=== PATIENT | female | born 1945 | race African-American/Black ===

== ENCOUNTER 2016-10-20 10:56 | Emergency (ER) | payer MEDICARE ==
[~2016-10-20] VITALS: Ht 165.1 cm; Wt 83.9 kg
[~2016-10-20 10:56] MED LIST: RIVA1TAB
[2016-10-20 11:53] LABS: BASOPHILS # (AUTO) 0.1 /CMM (0.0-0.2); BASOPHILS % (AUTO) 1.2 % (0.0-2.0); DIFF TOTAL % 100 %; EOSINOPHILS # (AUTO) 0.2 /CMM (0.0-0.7); EOSINOPHILS % (AUTO) 2.7 % (0.0-6.0); HEMATOCRIT 32 % (33-45); HEMOGLOBIN 10.9 g/dL (11.5-14.8); LYMPHOCYTES # (AUTO) 1.5 /CMM (0.8-4.8); MEAN CORPUSCULAR HEMOGLOBIN 28 PG (26.0-33.0); MEAN CORPUSCULAR HGB CONC 34 g/dl (31.0-36.0); MEAN CORPUSCULAR VOLUME 83 fL (82-100); MONOCYTES # (AUTO) 0.4 /CMM (0.1-1.30); MONOCYTES % (AUTO) 7.8 % (2.0-12.0); NEUTROPHILS # (AUTO) 3.4 /CMM (1.8-8.9); NEUTROPHILS % (AUTO) 61.3 % (43.0-81.0); PLATELET COUNT (AUTO) 202 /CMM (150-450); RED BLOOD CELL COUNT(AUTO) 3.87 MIL/uL (4.0-5.2); WHITE BLOOD COUNT (AUTO) 5.6 K/uL (4.3-11.0)
[2016-10-20 11:56] LABS: CALCIUM, SERUM 8.5 mg/dL (8.5-10.1); CREATININE 0.7 mg/dL (0.6-1.3); POTASSIUM 3.4 mmol/L (3.5-5.1)
[2016-10-20 12:00] LABS: PROTHROMBIN TIME 10.5 SECS (9.5-12.7)
[2016-10-20 12:02] LABS: ALBUMIN 3.2 g/dL (3.4-5.0); BILIRUBIN,TOTAL 0.5 mg/dL (0.2-1.0); TOTAL PROTEIN, SERUM 6.9 g/dL (6.4-8.2)
[2016-10-20 13:34] VITALS: BP 152/82
== END 2016-10-20 13:40 | disposition short-term general hospital (02) ==
LOC: ER 11:06
DX: M79.89 Other specified soft tissue disorders (principal); E66.9 Obesity, unspecified; D64.9 Anemia, unspecified; G62.9 Polyneuropathy, unspecified; Z88.0 Allergy status to penicillin; Z88.1 Allergy status to other antibiotic agents; Z88.2 Allergy status to sulfonamides; Z88.6 Allergy status to analgesic agent; Z79.01 Long term (current) use of anticoagulants
CPT/HCPCS: 36415; 80053; 85025; 85730; 93970; 99285; A4606; Z7610

== ENCOUNTER 2016-10-22 15:46 | Emergency (ER) | payer MEDICARE ==
[~2016-10-22] VITALS: Ht 167.6 cm; Wt 86.2 kg
[2016-10-22 15:46] VITALS: BP 188/85
== END 2016-10-22 17:33 | disposition home or self-care (01) ==
LOC: ER 15:50
DX: R60.9 Edema, unspecified (principal); E66.9 Obesity, unspecified; M79.89 Other specified soft tissue disorders; Z79.01 Long term (current) use of anticoagulants; Z86.718 Personal history of other venous thrombosis and embolism; Z88.0 Allergy status to penicillin
CPT/HCPCS: 99283; A4606; Z7610

== ENCOUNTER 2016-12-20 08:13 | Inpatient (IN) | payer MEDICARE, OTHER ==
[~2016-12-20] VITALS: Ht 165.1 cm; Wt 74.8 kg
[2016-12-20 04:00] VITALS: BP 151/75
--- NOTE | 2016-12-20 08:18 | NUR ---
BIBRA FROM HOME DUE TO CHRST PALPITATIONA AND BUE NUMBNESS SINCE THIS AM. PATIENT IS AWAKE, ALERTM APPEARS IN NO APPARENT DISTRESS, RESPIRATION EVEN AND UNLABORED, SKIN IS WARM TO TOUCH AND NON DIAPHORETIC. GOWNED PT AND PLACED ON TELE MONITOR
[2016-12-20] MEDS ORDERED: ASPIRIN 325 MG TABLET PO ONE (08:30)
[2016-12-20] MEDS ORDERED: ASPIRIN 325 MG TABLET ONE (08:39)
--- NOTE | 2016-12-20 09:10 | NUR ---
DR MCGUIRE AT BEDSIDE FOR ULTRASOUND IV INSERTION.
--- NOTE | 2016-12-20 09:16 | NUR ---
PT REFUSES IV INSERTION, BUT IS WILLING TO HAVE BLOOD DRAWN. REFUSING LIDCAINE IV INSERTION. DR MCGUIRE AWARE
[2016-12-20 09:37] LABS: BASOPHILS % (AUTO) 0.6 % (0.0-2.0); EOSINOPHILS # (AUTO) 0.2 /CMM (0.0-0.7); EOSINOPHILS % (AUTO) 3.3 % (0.0-6.0); HEMATOCRIT 31 % (33-45); HEMOGLOBIN 10.6 g/dL (11.5-14.8); LYMPHOCYTES # (AUTO) 1.6 /CMM (0.8-4.8); LYMPHOCYTES % (AUTO) 31.3 % (20.0-44.0); MEAN CORPUSCULAR HEMOGLOBIN 29 PG (26.0-33.0); MEAN CORPUSCULAR HGB CONC 34 g/dl (31.0-36.0); MEAN CORPUSCULAR VOLUME 84 fL (82-100); MONOCYTES # (AUTO) 0.5 /CMM (0.1-1.30); NEUTROPHILS # (AUTO) 2.9 /CMM (1.8-8.9); NEUTROPHILS % (AUTO) 55.8 % (43.0-81.0); PLATELET COUNT (AUTO) 194 /CMM (150-450); RDW COEFFICIENT OF VARIATION 15.3 (11.5-15.0); RED BLOOD CELL COUNT(AUTO) 3.71 MIL/uL (4.0-5.2); WHITE BLOOD COUNT (AUTO) 5.2 K/uL (4.3-11.0)
[2016-12-20 09:47] LABS: CALCIUM, SERUM 8.3 mg/dL (8.5-10.1); CARBON DIOXIDE 27 mmol/L (21-32); CHLORIDE 109 mmol/L (98-107); CREATININE 0.7 mg/dL (0.6-1.3); GFR 101 mL/min (>60); GLUCOSE 102 mg/dL (74-106); POTASSIUM 3.8 mmol/L (3.5-5.1); SODIUM SERUM 142 mmol/L (136-145); UREA NITROGEN, BLOOD 14 mg/dL (7-18)
[2016-12-20 09:55] LABS: TROPONIN I < 0.017 ng/mL (0.00-0.056)
[2016-12-20 09:59] LABS: B-TYPE NATRIURETIC PEPTIDE 359 PG/ML (0-125)
[2016-12-20 10:05] LABS: D-DIMER 2.42 mg/L(FEU (0.17-0.50); INR 0.99 (0.87-1.13); PROTHROMBIN TIME 10.6 SECS (9.5-12.7)
[2016-12-20] MEDS ORDERED: LIDOCAINE 0.5%-EPI 1:200,000 50 ML VIAL ONE (11:36)
--- NOTE | 2016-12-20 11:50 | NUR ---
MD AT BEDSIDE FOR ULTRASOUND GUIDED IV ACCESS. PER PT OKAY WITH PROCEDURE.
--- NOTE | 2016-12-20 12:10 | NUR ---
PER PT DOES NOT WANT IV OR PICC LINE AT THIS TIME.
--- NOTE | 2016-12-20 12:23 | NUR ---
PAGED BUDDY MCDONALD
--- NOTE | 2016-12-20 12:45 | NUR ---
SPOKE TO PATIENT, PATIENT AGREED FOR INSERTION OF PICCLINE. MD IS AWARE. SOLE TRIMMER MADE AWARE. PAGING PICC LINE TEAM
--- NOTE | 2016-12-20 12:46 | NUR ---
CALLED NURSING PACK MASTER FOR PICCLINE INSERTION
--- NOTE | 2016-12-20 13:40 | NUR ---
METALLURGICAL INSPECTOR NOTES RECEIVED REPORT FROM RICHELLE RUTH
--- NOTE | 2016-12-20 13:47 | NUR ---
PER DR GOODWIN PT TO HAVE PICC LINE IN THEN CTA. PER PICC LINE NURSE WILL COME AT 1500.
--- NOTE | 2016-12-20 13:48 | NUR ---
ELOISE BUENO NURSE ETA 1500
--- NOTE | 2016-12-20 14:57 | NUR ---
WIRE STRIPPER NOTES PER X RAY CANCEL ORDER FROM DR GOODWIN FOR CT CHEST THEY WILL DO THIS IN THE ER
[2016-12-20] MEDS ORDERED: MORPHINE SULFATE INJ 2 MG/ML DISP.SYRIN IV PRN (15:00)
[2016-12-20] MEDS ORDERED: ZOLPIDEM TARTRATE 5 MG TABLET PO PRN (15:00)
[2016-12-20] MEDS ORDERED: ACETAMINOPHEN 325 MG TABLET PO PRN (15:00)
[2016-12-20] MEDS ORDERED: MAG HYDROX/AL HYDROX/SIMETH 30 ML UDC PO PRN (15:00)
[2016-12-20] MEDS ORDERED: Z GUARD REMEDY 2 OZ OINT TP PRN (15:00)
[2016-12-20] MEDS ORDERED: MAGNESIUM HYDROXIDE 30 ML UDC PO PRN (15:00)
[2016-12-20] MEDS ORDERED: ONDANSETRON HCL/PF 4 MG/2 ML VIAL IVP PRN (15:00)
--- NOTE | 2016-12-20 15:42 | NUR ---
ELOISE PICC LINE RN AT BEDSIDE FOR INSERTION.
--- NOTE | 2016-12-20 15:43 | NUR ---
MIDLINE WILL BE PLACED PER MD
[2016-12-20 16:00] VITALS: BP 174/87
[2016-12-20 16:01] LABS: IRON, SERUM 36 ug/dl (50-175); TOTAL IRON BINDING CAPACITY 343 ug/dl (250-450)
[2016-12-20] MEDS ORDERED: IOHEXOL-350 100 ML VIAL IV ONE (16:14)
[2016-12-20] MEDS ORDERED: IV NS 0.9% 250 ML IV ONE (16:14)
--- NOTE | 2016-12-20 16:30 | NUR ---
RN Notes Received from ER a 71 year old female with cc of palpitation under the service of Dr Gilmore. Patient is awake,alert and oriented. Not in any form of distress. On RA saturating at 98% with no SOB. With IV access on left upper arm patent and intact. Placed comfortably on bed. Routine admission care done. Vs taken as BP 174/87 IL 76 RR 18 T 99F. Oriented to the room and use of call light. No complain at this time. Call light placed within easy reach. Dr Gilmore to place admitting orders.
--- NOTE | 2016-12-20 17:30 | NUR ---
RN Notes Patient refused account of belongings.
--- NOTE | 2016-12-20 19:05 | NUR ---
RN NOTE RECEIVED REPORT. PT AAOX4, NO C/O OF ANY DISTRESS. DENIOES SOB/CP. SKIN WARM TO TOUCH, NON-DIAPHORETIC. TELE SHOWS SR. IV INTACT AND PATENT. CALL LIGHT IN REACH, WILL CONT TO MONITOR. REFUSING BELONGING CHECK
[2016-12-20] MEDS ORDERED: IV SET PRIMARY PUMP SET 1 EA INFUS.SET MC ONE (20:40)
[2016-12-20] MEDS: IV D5/0.45 NACL 1,000 ML IV PRN (20:49)
[2016-12-20 21:06] VITALS: BP 123/53
[2016-12-21] VITALS: BP 150/76
[2016-12-21 01:03] LABS: APPEARANCE,URINE CLEAR (CLEAR); BILIRUBIN,URINE NEGATIVE (NEGATIVE); BLOOD, URINE NEGATIVE Ery/uL (NEGATIVE); COLOR,URINE YELLOW (YELLOW); KETONES,URINE NEGATIVE (NEGATIVE); LEUKOCYTE ESTERASE ,URINE NEGATIVE (NEGATIVE); NITRITE, URINE NEGATIVE (NEGATIVE); PH,URINE 6.5 (5.0-8.0); PROTEIN,URINE NEGATIVE (NEGATIVE); UGLUCOSE NEGATIVE (NEGATIVE); UROBILINOGEN,URINE 0.2 EU/dL (0.2)
--- NOTE | 2016-12-21 02:15 | NUR ---
RN NOTE NO DISTRESS NOTED AT THIS TIME. PT RESTING COMFORTABLY. WILL CONT TO MONITOR.
--- NOTE | 2016-12-21 07:03 | NUR ---
RN NOTE NO SIGNIFICANT CHANGES OVERNIGHT. PT AAOX4, WITH PERIODS OF FORGETFULNESS AT TIMES. DENIES SOB/CP, BREATHING NON-LABORED AND EVEN - NON DIAPHORETIC. NO DISTRESS NOTED. TELE SHOWS SR. IV INTACT AND PATENT, TOLERATING FLUIDS WELL. WILL F/U WITH DAY SHIFT FOR TONYA.
[2016-12-21 07:04] VITALS: BP 145/68
--- NOTE | 2016-12-21 07:20 | NUR ---
FARM SUPERVISOR OPENING NOTES RECEIVED PT. FROM NIGHTSHIFT NURSE IN STABLE CONDITION. A/O X4. ON TELE MONITOR WITH SR. PT. HAS A LEFT UPPER ARM MIDLINE. MIDLINE PATENT AND INTACT R=INFUSING D5 1/2 NS @ 75ML.HR. PT. TOLERATING INFUSION WELL. NO REDNESS OR INFILTRATION NOTED. PT. DENIES ANY CHEST PAIN OR PALPITATIONS AT THIS TIME. COMPLAINS OF ONGOING "TINGLING" SENSATION IN BOTH LOWER AND UPPER EXTREMITIES. WILL CONTINUE TO MONITOR.
[2016-12-21 08:34] LABS: BASOPHILS % (AUTO) 0.6 % (0.0-2.0); EOSINOPHILS # (AUTO) 0.1 /CMM (0.0-0.7); EOSINOPHILS % (AUTO) 2.1 % (0.0-6.0); HEMATOCRIT 35 % (33-45); HEMOGLOBIN 11.3 g/dL (11.5-14.8); LYMPHOCYTES # (AUTO) 1.5 /CMM (0.8-4.8); LYMPHOCYTES % (AUTO) 32.9 % (20.0-44.0); MEAN CORPUSCULAR HEMOGLOBIN 28 PG (26.0-33.0); MEAN CORPUSCULAR HGB CONC 33 g/dl (31.0-36.0); MEAN CORPUSCULAR VOLUME 85 fL (82-100); MONOCYTES # (AUTO) 0.4 /CMM (0.1-1.30); MONOCYTES % (AUTO) 8.7 % (2.0-12.0); NEUTROPHILS # (AUTO) 2.5 /CMM (1.8-8.9); NEUTROPHILS % (AUTO) 55.7 % (43.0-81.0); PLATELET COUNT (AUTO) 216 /CMM (150-450); RDW COEFFICIENT OF VARIATION 16.3 (11.5-15.0); RED BLOOD CELL COUNT(AUTO) 4.08 MIL/uL (4.0-5.2); WHITE BLOOD COUNT (AUTO) 4.6 K/uL (4.3-11.0)
[2016-12-21 08:48] LABS: ALBUMIN 2.9 g/dL (3.4-5.0); BILIRUBIN,TOTAL 0.3 mg/dL (0.2-1.0); CALCIUM, SERUM 8.3 mg/dL (8.5-10.1); CREATININE 0.8 mg/dL (0.6-1.3); MAGNESIUM 1.8 mg/dL (1.8-2.4); PHOSPHORUS 3.5 mg/dL (2.5-4.9); POTASSIUM 3.9 mmol/L (3.5-5.1); TOTAL PROTEIN, SERUM 6.6 g/dL (6.4-8.2)
[2016-12-21 08:50] LABS: INR 0.99 (0.87-1.13); PROTHROMBIN TIME 10.6 SECS (9.5-12.7)
[2016-12-21 08:54] LABS: THYROID STIMULATING HORMONE 0.645 uIU/mL (0.358-3.74)
[2016-12-21 09:00] VITALS: BP 145/68
[2016-12-21] MEDS: PANTOPRAZOLE 40 MG TABLET.DR PO SCH (09:02)
[2016-12-21] MEDS: CARVEDILOL 6.25 MG TABLET PO SCH ×3 (11:23→21:00)
[2016-12-21 12:00] VITALS: BP 150/84
--- NOTE | 2016-12-21 13:32 | NUR ---
PATIENT REFUSING CT UNTIL 1800. DIRECTOR E LEARNING AWARE
[2016-12-21 16:00] VITALS: BP 134/75
[2016-12-21] MEDS: RIVAROXABAN 10 MG TABLET PO SCH (18:08)
--- NOTE | 2016-12-21 18:14 | NUR ---
PT WANTS TO WAIT UNTIL AFTER DINNER BEFORE CT SCAN, RN IS AWARE.
--- NOTE | 2016-12-21 18:55 | NUR ---
MENAGERIE CARETAKER CLOSING NOTES PT IN STABLE CONDITION. A/O X4. DENIES ANY CHEST PAIN OR PALPITATIONS. NO ACUTE CHANGES IN CONDITION THROUGHOUT SHIFT. ALL PT. NEEDS MET AND ORDERS CARRIED OUT ACCORDINGLY. ALL SAFETY MEASURES IN PLACE. WILL ENDORSE TO NIGHTSHIFT NURSE FOR TONYA
--- NOTE | 2016-12-21 19:05 | NUR ---
RN NOTE RECEIVED REPORT. NO DISTRESS NOTED AT THIS TIME, PT APPEARS AGITATED. NO C/O OF CP/SOB. BREATHING NON-LABORED AND EVEN. TELE SHOWS SR. IV INTCT AND P[ATENT, TOLERATIG FLUIDS WELL. CALL LIGHT IN REACH WILL CONT TO MONITOR.
[2016-12-21 20:00] VITALS: BP 160/86
[2016-12-21] MEDS: HYDROCODONE/APAP 5/325MG 1 EACH TABLET PO PRN (20:50)
--- NOTE | 2016-12-21 21:10 | NUR ---
RN NOTE PT REFUSING COREG BP MED DESPITE ENCOURAGEMENT AND TEACHING X3. PT STATES THAT HER BODY IS SENSITIVE AND SHE NEVER TOOK THAT MEDICATION BEFORE.
[2016-12-22] VITALS: BP 131/66
[2016-12-22] MEDS: IV D5/0.45 NACL 1,000 ML IV PRN ×2 (01:56→21:53)
[2016-12-22 04:00] VITALS: BP 135/70
--- NOTE | 2016-12-22 06:27 | NUR ---
RN NOTE NO SIGNIFICANT CHANGES THIS SHIFT. PT SLEPT WELL. NO S/S OF ANY DISTRESS AT THIS TIME. DENIES CP/SOB. TELE SHOWS SR. IV INTACT AND PATENT,TOLERATING FLUIDS WELL. ALL NEEDS ATTENDED TO, CALL LIGHT IN REACH. FOR LEXISCAN AT 0800.
[2016-12-22 06:38] LABS: BASOPHILS % (AUTO) 0.6 % (0.0-2.0); EOSINOPHILS # (AUTO) 0.2 /CMM (0.0-0.7); EOSINOPHILS % (AUTO) 3.1 % (0.0-6.0); HEMATOCRIT 34 % (33-45); HEMOGLOBIN 11.2 g/dL (11.5-14.8); LYMPHOCYTES # (AUTO) 1.8 /CMM (0.8-4.8); LYMPHOCYTES % (AUTO) 33.5 % (20.0-44.0); MEAN CORPUSCULAR HEMOGLOBIN 28 PG (26.0-33.0); MEAN CORPUSCULAR HGB CONC 33 g/dl (31.0-36.0); MEAN CORPUSCULAR VOLUME 85 fL (82-100); MONOCYTES # (AUTO) 0.5 /CMM (0.1-1.30); MONOCYTES % (AUTO) 10.4 % (2.0-12.0); NEUTROPHILS # (AUTO) 2.7 /CMM (1.8-8.9); NEUTROPHILS % (AUTO) 52.4 % (43.0-81.0); PLATELET COUNT (AUTO) 216 /CMM (150-450); RED BLOOD CELL COUNT(AUTO) 4.01 MIL/uL (4.0-5.2); WHITE BLOOD COUNT (AUTO) 5.2 K/uL (4.3-11.0)
[2016-12-22 06:41] LABS: CALCIUM, SERUM 8.4 mg/dL (8.5-10.1); CREATININE 0.7 mg/dL (0.6-1.3); MAGNESIUM 1.8 mg/dL (1.8-2.4); PHOSPHORUS 3.7 mg/dL (2.5-4.9)
[2016-12-22 07:16] VITALS: BP 144/72
--- NOTE | 2016-12-22 07:20 | NUR ---
PAVILION CUTTER OPENING NOTES RECEIVED PT. FROM NIGHTSHIFT NURSE IN STABLE CONDITION. A/O X4. ON TELE MONITOR WITH SR. PT. HAS A LEFT UPPER ARM MIDLINE. MIDLINE PATENT AND INTACT INFUSING D5 1/2 NS @ 75ML.HR. PT. TOLERATING INFUSION WELL. NO REDNESS OR INFILTRATION NOTED. PT. DENIES ANY CHEST PAIN OR PALPITATIONS AT THIS TIME. BED IN LOW LOCKED POSITION, SIDE RAILS UP X2, CALL LIGHT WITHIN REACH. WILL CONTINUE TO MONITOR.
[2016-12-22 08:00] VITALS: BP 144/79
[2016-12-22] MEDS ORDERED: REGADENOSON 0.4 MG/5 ML DISP.SYRIN IVP ONE (08:00)
[2016-12-22 08:28] LABS: HOMOCYSTEINE, PLASMA 12.5 umol/L (0.0-15.0)
[2016-12-22] MEDS: CARVEDILOL 6.25 MG TABLET PO SCH ×2 (09:16→21:48)
[2016-12-22] MEDS: PANTOPRAZOLE 40 MG TABLET.DR PO SCH (09:16)
[2016-12-22] MEDS: MUPIROCIN OINT 2% 22 GM TUBE SCH ×2 (09:16→21:50)
[2016-12-22 10:34] LABS: CARCINOEMBRYONIC AG (CEA) 2.6 ng/mL (0.0-4.7)
[2016-12-22] MEDS: HYDROCODONE/APAP 5/325MG 1 EACH TABLET PO PRN (11:22)
--- NOTE | 2016-12-22 14:49 | NUR ---
DIETARY SUPERVISOR NOTES PT.'S IV IS NO LONGER PATENT. INFUSION STOPPED.MIDLINE NURSE WAS NOTIFIED AND SAID HE WILL COME ASSESS AND INTERVENE. WILL CONTINUE TO MONITOR AND AWAIT MIDLINE NURSE
--- NOTE | 2016-12-22 16:59 | NUR ---
SALT MANAGER NOTES JOB THE MIDLINE NURSE SUCCESSFULLY FIXED PT.'S MIDLINE. IV IS NOW PATENT AND INTACT. GOOD BLOOD RETURN PRESENT AND FLUSHES WELL
[2016-12-22] MEDS: GABAPENTIN 100 MG CAPSULE PO SCH (17:25)
[2016-12-22] MEDS: RIVAROXABAN 10 MG TABLET PO SCH (17:29)
--- NOTE | 2016-12-22 18:43 | NUR ---
CHARACTER IMPERSONATOR CLOSING NOTES PT IN STABLE CONDITION. A/O X4. DENIES ANY CHEST PAIN OR PALPITATIONS. MIDLINE INTACT AND PATENT. NO REDNESS OR INFILTRATION NOTED. NO ACUTE CHANGES IN CONDITION THROUGHOUT SHIFT. ALL PT. NEEDS MET AND ORDERS CARRIED OUT ACCORDINGLY. ALL SAFETY MEASURES IN PLACE. WILL ENDORSE TO NIGHTSHIFT NURSE FOR TONYA
--- NOTE | 2016-12-22 19:40 | NUR ---
LEASING COORDINATOR NOTE: PATIENT RESTING IN BED, NO ACUTE DISTRESS NOTED. BREATHING EVEN AND UNLABORED, NO SOB NOTED. TELE READING SR 74. MIDLINE TO LEFT UPPER ARM IN PLACE, INFUSING D5 1/2NS AT 75ML/HR. BED LOCKED AND IN LOWEST POSITION, CALL LIGHT IN REACH. WILL CONTINUE TO MONITOR.
[2016-12-22 20:00] VITALS: BP 159/99
[2016-12-23] VITALS: BP 160/79
[2016-12-23] MEDS: HYDROCODONE/APAP 5/325MG 1 EACH TABLET PO PRN ×2 (02:19→14:14)
--- NOTE | 2016-12-23 02:30 | NUR ---
ICE GUARD INSPECTOR NOTE: PATIENT COMPLAINS OF CHEST PAIN 02/19, NORCO 5/325MG ORAL GIVEN PER MD ORDER. WILL CONTINUE TO MONITOR.
[2016-12-23 04:00] VITALS: BP 110/62
--- NOTE | 2016-12-23 06:10 | NUR ---
TOUR COUNSELOR NOTE: PATIENT RESTING IN BED, NO ACUTE DISTRESS NOTED. BREATHING EVEN AND UNLABORED, NO SOB NOTED. TELE READING SR 70. MIDLINE TO LEFT UPPER ARM IN PLACE, INFUSING D5 1/2NS AT 75ML/HR. BED LOCKED AND IN LOWEST POSITION, CALL LIGHT IN REACH. WILL ENDORSE TO DAY NURSE TO CONTINUE WITH PLAN OF CARE.
[2016-12-23 08:00] VITALS: BP 142/88
[2016-12-23 08:30] LABS: BASOPHILS % (AUTO) 0.5 % (0.0-2.0); EOSINOPHILS # (AUTO) 0.1 /CMM (0.0-0.7); EOSINOPHILS % (AUTO) 2.8 % (0.0-6.0); HEMATOCRIT 36 % (33-45); HEMOGLOBIN 11.5 g/dL (11.5-14.8); LYMPHOCYTES # (AUTO) 1.9 /CMM (0.8-4.8); LYMPHOCYTES % (AUTO) 40.7 % (20.0-44.0); MEAN CORPUSCULAR HEMOGLOBIN 28 PG (26.0-33.0); MEAN CORPUSCULAR HGB CONC 32 g/dl (31.0-36.0); MEAN CORPUSCULAR VOLUME 86 fL (82-100); MONOCYTES # (AUTO) 0.5 /CMM (0.1-1.30); MONOCYTES % (AUTO) 10.2 % (2.0-12.0); NEUTROPHILS # (AUTO) 2.1 /CMM (1.8-8.9); NEUTROPHILS % (AUTO) 45.8 % (43.0-81.0); PLATELET COUNT (AUTO) 227 /CMM (150-450); RDW COEFFICIENT OF VARIATION 15.8 (11.5-15.0); RED BLOOD CELL COUNT(AUTO) 4.18 MIL/uL (4.0-5.2); WHITE BLOOD COUNT (AUTO) 4.6 K/uL (4.3-11.0)
[2016-12-23 08:36] LABS: CALCIUM, SERUM 8.5 mg/dL (8.5-10.1); CREATININE 0.7 mg/dL (0.6-1.3); MAGNESIUM 1.8 mg/dL (1.8-2.4); PHOSPHORUS 3.9 mg/dL (2.5-4.9); POTASSIUM 3.9 mmol/L (3.5-5.1)
[2016-12-23] MEDS: GABAPENTIN 100 MG CAPSULE PO SCH ×3 (08:54→17:14)
[2016-12-23] MEDS: PANTOPRAZOLE 40 MG TABLET.DR PO SCH (08:54)
[2016-12-23] MEDS: CARVEDILOL 6.25 MG TABLET PO SCH ×2 (08:55→22:29)
[2016-12-23] MEDS: MUPIROCIN OINT 2% 22 GM TUBE SCH ×2 (09:03→22:00)
--- NOTE | 2016-12-23 11:00 | NUR ---
RN MS NOTES PT IN BED, RESTING, NO COMPLAINT OF PAIN OR ANY DISCOMFORT, BREATHING PATTERN NORMAL, CALL LIGHT WITHIN REACH, IV FLUIDS INFUSING WELL, ASSISTED IN TRANSFERING TO BEDSIDE COMMODE, ASSISTED IN TURNING AND REPOSITIONING.
[2016-12-23 12:00] VITALS: BP 138/75
[2016-12-23] MEDS: IV D5/0.45 NACL 1,000 ML IV PRN (13:05)
--- NOTE | 2016-12-23 13:19 | NUR ---
RN NOTES RECEIVED PATIENT IN BED A/O X 3, AWAKE AND VERBALLY RESPONSIVE. NO SOB NOTED, RESPIRATIONS EVEN AND UNLABORED. PATIENT DENIES PAIN. IV LINE PATENT NO S/S OF INFILTRATION NOTED. ALL NEEDS MET KEPT CLEAN AND DRY. Addendum: 12/23/16 at 1321 by JEFF DOUGLASS RN 0730 NOTES
[2016-12-23 14:19] LABS: *ANTITHROMBIN III AG 91 % (72-124); *DILUTE PROTHROMBIN TIME (dPT) 42.7 sec (0.0-55.0); *PTT-LA 40.6 sec (0.0-43.6); *dRVVT 38.8 sec (0.0-47.0); ANTITHROMBIN III ACTIVITY 93 % (75-135); PROTEIN C ACTIVITY 66 % (73-180); PROTEIN S ACTIVITY 59 % (63-140)
[2016-12-23 15:09] LABS: *INTERPRETATION Comment: (.)
[2016-12-23 16:00] VITALS: BP 149/78
[2016-12-23] MEDS: RIVAROXABAN 10 MG TABLET PO SCH (17:14)
--- NOTE | 2016-12-23 19:00 | NUR ---
RN MS NOTES PT IN BED, AWAKE, ALERT AND ORIENTED, NO COMPLAINT OF PAIN, RESPIRATIONS NORMAL, CALL LIGHT WITHIN REACH, PLAN OF CARE DISCUSSED WITH PT, VERBALIZED UNDERSTANDING, PM MEDS GIVEN, ATE DINNER WITH GOOD APPETITE, PM CARE RENDERED, ALL NEEDS ATTENDED.
--- NOTE | 2016-12-23 19:30 | NUR ---
MS/INTERVIEWING CLERK; RECEIVED PT IN BED AWAKE, ALERT , ORIENTED AND VERBALLY RESPONSIVE. DENIES PAIN. BREATHING NON LABORED. MIDLINE ON LANE INTACT WITH IVF OF D5 1/2 NS AT 75 ML / HOUR ON PROGRESS. BED ON LOWER POSITION AND LOCKED FOR SAFETY. UPPER PART OF BED SIDE RAILS ARE UP FOR SAFETY. CONTINUE TO MONITOR. CALL LIGHT WITHIN REACH.
[2016-12-23 20:00] VITALS: BP 138/90
[2016-12-23] MEDS ORDERED: MUPIROCIN OINT 2% 22 GM TUBE ONE (22:45)
[2016-12-24] MEDS: IV D5/0.45 NACL 1,000 ML IV PRN ×2 (04:41→17:29)
--- NOTE | 2016-12-24 07:00 | NUR ---
MS/INSTRUCTIONAL DESIGN SPECIALIST DENIES PAIN. SLEPT FAIRLY. BREATHING NON LABORED. IVF ON PROGRESS. WILL ENDORSE TO THE DAY SHIFT NURSE.
--- NOTE | 2016-12-24 07:30 | NUR ---
RN MS NOTES PT IN BED, AWAKE, ALERT AND ORIENTED, NO COMPLAINT OF PAIN OR ANY DISCOMFORT, RESPIRATIONS NORMAL, IV FLUIDS INFUSING WELL, STATED THAT SHE SLEPT WELL DURING THE NIGHT, CALL LIGHT WITHIN REACH, NEEDS ATTENDED.
[2016-12-24 08:00] VITALS: BP 162/99
[2016-12-24] MEDS: GABAPENTIN 100 MG CAPSULE PO SCH ×3 (08:48→17:00)
[2016-12-24] MEDS: PANTOPRAZOLE 40 MG TABLET.DR PO SCH (08:48)
[2016-12-24] MEDS: CARVEDILOL 6.25 MG TABLET PO SCH ×2 (08:48→22:00)
[2016-12-24] MEDS: MUPIROCIN OINT 2% 22 GM TUBE SCH ×2 (08:49→22:03)
--- NOTE | 2016-12-24 12:30 | NUR ---
RN MS NOTES PT IN BED, AWAKE, ALERT AND ORIENTED, NO COMPLAINT OF PAIN OR ANY DISCOMFORT, TOLERATING ROOM AIR WELL, IV FLUIDS INFUSING WELL, SEEN BY DR. GOODWIN, PLAN OF CARE DISCUSSED WITH PT, VERBALIZED UNDERSTANDING, CALL LIGHT WITHIN REACH, ASSISTED WITH MEALS.
[2016-12-24] MEDS: RIVAROXABAN 10 MG TABLET PO SCH (17:43)
--- NOTE | 2016-12-24 18:02 | NUR ---
RN MS NOTES PT IN BED, AWAKE, WATCHING TV, NO COMPLAINT OF PAIN OR ANY DISCOMFORT, ASSISTED WITH SETTING UP DINNER TRAY, NOTED WITH GOOD APPETITE, IV FLUIDS INFUSING WELL, PM MEDS GIVEN, REFUSED NEURONTIN, STATED THAT MED GIVES HER HEADACHE AT NIGHT, PT EDUCATION GIVEN REGARDING RISKS AND BENEFITS OF NEURONTIN WELL ITS POSSIBLE SIDE EFFECTS, VERBALIZED UNDERSTANDING, STILL REFULSED MED, CALL LIGHT WITHIN REACH, ASSISTED TO BEDSIDE COMMODE NEEDED.
[2016-12-24 19:00] VITALS: BP 134/76
[2016-12-24 20:00] VITALS: BP 134/76
--- NOTE | 2016-12-24 21:50 | NUR ---
MS/RN NOTES RECEIVED REPORT FROM LA NENA HOLLAND DUE TO PT REQUESTING A FEMALE NURSE. PT AWAKE, A/OX3, RESTING COMFORTABLY IN BED. ON ROOM AIR, NO S/S OF SOB OR DISTRESS NOTED. DENIES PAIN AT THIS TIME. LANE MIDLINE RUNNING D5 1/2 NS AT 75ML/HR. BED IN LOW/LOCKED POSITION WITH CALL LIGHT IN REACH. BED RAILS UPX2. WILL CONTINUE TO MONITOR
--- NOTE | 2016-12-25 03:35 | NUR ---
MS/RN NOTES PT ASLEEP, BREATHING EVEN AND UNLABORED. NO S/S OF DISTRESS NOTED. WILL CONTINUE TO MONITOR
--- NOTE | 2016-12-25 06:57 | NUR ---
MS/RN CLOSING NOTES PT ASLEEP, EASILY AROUSABLE TO NAME. ON ROOM AIR, DENIES SOB OR CHEST PAIN. NO S/S OF DYSPNEA, BREATHING IS EVEN AND UNLABORED. MIDLINE TO LANE PATENT AND INTACT RUNNING IVF ORDERED. MADE PT COMFORTABLE THROUGHOUT SHIFT. SLEPT WELL THROUGHOUT THE NIGHT. ALL NEEDS MET AND ATTENDED TO. BED IN LOW/LOCKED POSITION WITH CALL LIGHT IN REACH. ENCOURAGE PT TO CALL FOR ASSISTANCE. BED RAILS UP. WILL ENDORSE TO AM SHIFT TONYA.
--- NOTE | 2016-12-25 07:16 | NUR ---
MS/RN OPENING NOTE PT. IS LYING IN BED A&OX4. NO S/S OF DISTRESS, NO SOB, AND BREATHING ON ROOM AIR. PT. HAS IV FLUIDS RUNNING AT 75 ML/HR. BED IS IN LOW POSITION, 2 SIDE RAILS UP, CALL LIGHT IS WITHIN REACH, AND ALL NEEDS ATTENDED TO. REPORT GIVEN BY DAY SHIFT NURSE.
[2016-12-25 07:34] LABS: BASOPHILS % (AUTO) 0.6 % (0.0-2.0); EOSINOPHILS # (AUTO) 0.1 /CMM (0.0-0.7); EOSINOPHILS % (AUTO) 2.6 % (0.0-6.0); HEMATOCRIT 37 % (33-45); LYMPHOCYTES # (AUTO) 1.8 /CMM (0.8-4.8); LYMPHOCYTES % (AUTO) 35.2 % (20.0-44.0); MEAN CORPUSCULAR HEMOGLOBIN 28 PG (26.0-33.0); MEAN CORPUSCULAR HGB CONC 33 g/dl (31.0-36.0); MEAN CORPUSCULAR VOLUME 85 fL (82-100); MONOCYTES # (AUTO) 0.5 /CMM (0.1-1.30); MONOCYTES % (AUTO) 10.1 % (2.0-12.0); NEUTROPHILS # (AUTO) 2.6 /CMM (1.8-8.9); NEUTROPHILS % (AUTO) 51.5 % (43.0-81.0); PLATELET COUNT (AUTO) 277 /CMM (150-450); RED BLOOD CELL COUNT(AUTO) 4.32 MIL/uL (4.0-5.2); WHITE BLOOD COUNT (AUTO) 5.1 K/uL (4.3-11.0)
[2016-12-25 07:54] LABS: CALCIUM, SERUM 8.7 mg/dL (8.5-10.1); CREATININE 0.7 mg/dL (0.6-1.3); MAGNESIUM 1.8 mg/dL (1.8-2.4); PHOSPHORUS 3.8 mg/dL (2.5-4.9); POTASSIUM 4.1 mmol/L (3.5-5.1)
[2016-12-25 08:00] VITALS: BP 135/85
[2016-12-25] MEDS: MUPIROCIN OINT 2% 22 GM TUBE SCH ×3 (09:00→21:00)
[2016-12-25] MEDS: GABAPENTIN 100 MG CAPSULE PO SCH ×2 (09:00→17:00)
[2016-12-25] MEDS ORDERED: RIVA10TA PO (09:13)
[2016-12-25] MEDS ORDERED: CARV6.252 PO (09:13)
[2016-12-25] MEDS: PANTOPRAZOLE 40 MG TABLET.DR PO SCH (09:26)
[2016-12-25] MEDS: CARVEDILOL 6.25 MG TABLET PO SCH ×2 (09:28→21:00)
[2016-12-25] MEDS ORDERED: IV SET PRIMARY 1 EA INFUS.SET MC ONE (09:33)
[2016-12-25] MEDS: IV D5/0.45 NACL 1,000 ML IV PRN (09:33)
[2016-12-25 10:22] LABS: *CARD ANTI-CARDIOLIPIN AB IgA <9 APL U/mL (0-11); *CARD ANTI-CARDIOLIPIN AB IgG <9 GPL U/mL (0-14); *CARD ANTI-CARDIOLIPIN AB IgM <9 MPL U/mL (0-12)
[2016-12-25 16:00] VITALS: BP 137/73
[2016-12-25] MEDS: RIVAROXABAN 10 MG TABLET PO SCH (17:45)
--- NOTE | 2016-12-25 19:21 | NUR ---
MS/RN OPENING NOTES PATIENT IN BED, ALERT , ORIENTED X3. FAMILY MEMBER AT BED SIDE. CALL LIGHTS WITHIN REACH. WILL CONTINUE TO PROVIDE CARE. AND ATTEND TO NEEDS. PER FAMILY AND PATIENT WILL WANT TO KNOW D/C INSTRUCTIONS.
--- NOTE | 2016-12-25 19:30 | NUR ---
MS/RN PT. IS LYING IN BED A&OX4. NO SOB. PT. IS GUARDING HER RIGHT KNEE AND C/O KNEE PAIN. PT. WAS OFFERED PAIN MEDICATION. PT. BED IS IN LOW POSITION, 2 SIDE RAILS UP, CALL LIGHT WITHIN REACH, AND ALL NEEDS ATTENDED TO. WILL ENDORSE REPORT TO POLICE RADIO DISPATCHER NURSE.
[2016-12-25] MEDS: HYDROCODONE/APAP 5/325MG 1 EACH TABLET PO PRN (19:43)
--- NOTE | 2016-12-25 19:44 | NUR ---
MS/RN OPENING NOTES PATIENT IN BED, AWAKE, ALERTX3. ABLE TO VERBALIZE NEEDS. VERBALIZE SEVERE PAIN IN LEGS. ATTENDED TO PATIENTS CONCERN GAVE NORCO PO 5/325MG TAB. REQUEST TO HAVE B/P CHECK LATER ON PER PATIENT. PROVIDE FLUIDS. CALL LIGHTS WITHIN REACH. RECEIVED ENDORSEMENT FROM AM RN. PLAN TO BE DC TO SNF STILL PENDING FOR TONIGHT AWAITING FOR RETURN CALL.WILL CONTINUE MONITORING.
[2016-12-25 20:00] VITALS: BP 140/76
--- NOTE | 2016-12-25 20:30 | NUR ---
RN OPEN NOTES RECEIVED PATIENT AWAKE SITTING ON EDGE OF BED. A/O X3. NO SIGNS OF DISTRESS OF DISCOMFORT. BREATHING EVEN AND UNLABORED. HAS LANE MIDLINE, PATENT AND INTACT, NO SIGNS OF REDNESS OR INFILTRATION. DENIES ANY PAIN AT THIS TIME. BED IN LOW LOCKED POSITION WITH SIDE RAILS X2. CALL LIGHT WITHIN REACH. WILL CONTINUE TO MONITOR.
--- NOTE | 2016-12-25 20:54 | NUR ---
ms/rn notes REPORT GIVEN TO FLORY BLANC FOR CONTINUITY OF CARE.
[2016-12-25 21:00] VITALS: BP 140/76
--- NOTE | 2016-12-25 22:00 | NUR ---
RN NOTES PATIENT REFUSED COREG AND BACTROBAN X3. STATES SHE WAS ALREADY BEEN GIVEN HER BP MEDICATION AND THE BACTROBAN IS MAKING HER COUGH. PATIENT EDUCATION REINFORCED. WILL CONTINUE TO MONITOR.
--- NOTE | 2016-12-25 22:10 | NUR ---
RN NOTES PATIENT REFUSED IVF X3. SAYS TO COME BACK BECAUSE RIGHT NOW SHE NEEDS TO FIND SOME PAPERWORK FOR CASE MANAGEMENT. PATIENT EDUCATION REINFORCED. WILL CONTINUE TO MONITOR.
[2016-12-25] MEDS ORDERED: IV SET PRIMARY PUMP SET 1 EA INFUS.SET MC ONE (22:29)
--- NOTE | 2016-12-26 | NUR ---
RN NOTES RE-ATTEMPTED TO CONNECT PATIENT TO IVF X3, PATIENT STATES "NOT RIGHT NOW". PATIENT EDUCATION REINFORCED. WILL CONTINUE TO MONITOR.
--- NOTE | 2016-12-26 06:28 | NUR ---
RN OPEN NOTES PATIENT RESTING IN BED. A/O X3. NO SIGNS OF DISTRESS OF DISCOMFORT. BREATHING EVEN AND UNLABORED. HAS LANE MIDLINE, PATENT AND INTACT, NO SIGNS OF REDNESS OR INFILTRATION. PATIENT IS STILL REFUSING IVF AT THIS TIME. DENIES ANY PAIN. NO SIGNIFICANT CHANGES THROUGH THE NIGHT. ALL NEEDS ATTENDED TO. BED IN LOW LOCKED POSITION WITH SIDE RAILS X2. CALL LIGHT WITHIN REACH. WILL ENDORSE TO AM SHIFT FOR TONYA.
[2016-12-26 08:00] VITALS: BP 145/71
[2016-12-26] MEDS: MUPIROCIN OINT 2% 22 GM TUBE SCH ×2 (09:00→09:49)
[2016-12-26 09:48] VITALS: BP 145/71
[2016-12-26] MEDS: GABAPENTIN 100 MG CAPSULE PO SCH (09:48)
[2016-12-26] MEDS: CARVEDILOL 6.25 MG TABLET PO SCH (09:48)
[2016-12-26] MEDS: PANTOPRAZOLE 40 MG TABLET.DR PO SCH (09:48)
--- NOTE | 2016-12-26 16:30 | NUR ---
MS/DEALER SALES MANAGER WALKED INTO PT.'S ROOM TO EXPLAIN AND PROVIDE DISCHARGE INSTRUCTIONS AND BELONGINGS LIST. PT. BECAME VERBALLY ABUSIVE AND REFUSED TO SIGN DISCHARGE PAPERS, AND BELONGINGS LIST. EXPLAINED TO THE PT. THE NEED TO REMOVE HER IV AND ID BAND BEFORE LEAVING. PT. BECAME VERBALLY ABUSIVE AND INSISTED ON HAVING ANOTHER NURSE REMOVE HER IV.
--- NOTE | 2016-12-26 16:34 | NUR ---
MS/STEAMTABLE WORKER PT. IS BEING DISCHARGED HOME IN A STABLE CONDITION. PT. WAS BEING VERBALLY ABUSIVE AND REFUSED TO SIGN DISCHARGE INSTRUCTIONS. LEFT UPPER ARM MIDLINE IV WAS REMOVED BY ANOTHER NURSE. PT. WAS EXPLAINED TO FOLLOW UP WITH A AIR QUALITY INSTRUMENT SPECIALIST AND TO MAKE AN APPOINTMENT WITH HER PRIMARY CARE PROVIDER IN THREE DAYS.
--- NOTE | 2016-12-26 16:45 | NUR ---
MS/ CHIEF BUILDING INSPECTOR PT. LEFT ROOM WITH HER BELONGINGS AND WAS OFFERED TO BE ESCORTED IN A WHEELCHAIR. PT. REFUSED THE WHEELCHAIR. PT. WAS PROVIDED AND TOOK WITH HER A FOLDER OF HER DISCHARGE INSTRUCTIONS AND SIGNED DISCHARGE PAPERS. PT. STARTED TAKING PHOTOGRAPHS OF NURSES, THE NURSING STATION, AND NURSING BOARDS WHILE WALKING TOWARDS THE ELEVATOR, AND BECAME VERBALLY ABUSIVE TO NURSES SHE WAS LEAVING THE NURSING UNIT. CHARGE NURSE CALLED SECURITY TO INFORM ABOUT PT.'S BEHAVIOR.
[2016-12-26] MEDS ORDERED: MIRTAZAPINE 15 MG TABLET PO SCH (22:00)
== END 2016-12-26 17:00 | disposition home or self-care (01) | DRG 74 ==
LOC: ER 08:18 → TELE 13:08 → MED 12-23 09:17
PROVIDERS: ADMIT Internal Medicine; ATTEND Internal Medicine
DX: M54.12 Radiculopathy, cervical region (principal); F41.9 Anxiety disorder, unspecified; I20.9 Angina pectoris, unspecified; I73.00 Raynaud's syndrome without gangrene; R06.00 Dyspnea, unspecified; Z86.718 Personal history of other venous thrombosis and embolism; K44.9 Diaphragmatic hernia without obstruction or gangrene; E61.1 Iron deficiency; Z87.891 Personal history of nicotine dependence; I10 Essential (primary) hypertension; G62.9 Polyneuropathy, unspecified; M48.02 Spinal stenosis, cervical region; Z79.01 Long term (current) use of anticoagulants; Z86.711 Personal history of pulmonary embolism; Z88.0 Allergy status to penicillin; Z88.2 Allergy status to sulfonamides
CPT/HCPCS: 36415; 36569; 71010-TC; 72125-TC; 80048-TC; 80053-TC; 80061-TC; 81000-TC; 81241; 82378; 82746; 83090; 83540-TC; 83735-TC; 83880; 84100-TC; 84443-TC; 84484-TC; 85025-TC; 85300; 85301; 85303; 85378-TC; 85613; 85670; 85705; 85730-TC; 85732; 86147; 87086-TC; 93307-TC; 93970-TC; 97001-TC; 97003-TC; 97116-TC; 97530-TC; A4606; J3490; J7050; Q9967; Z7610

== ENCOUNTER 2017-05-20 03:18 | Emergency (ER) | payer MEDICARE, MEDICAID ==
[~2017-05-20] VITALS: Ht 165.1 cm; Wt 83.5 kg
[~2017-05-20 03:18] MED LIST changes: +CARV6.252 PO; +RIVA10TA PO; -RIVA1TAB
--- NOTE | 2017-05-20 03:30 | NUR ---
TO BED 9 A 72 YO FEMALE PATIENT BB RA; C/O "LOWER LEG PAIN/ SWELLING X2WKS." PER PATIENT, SHE WAS AT [facility] AND WAS SUPPOSED TO BE GIVEN A MOTORIZED WHEELCHAIR. PATIENT IS ALERT, RESPONSIVE, NAD NOTED. VSS. COMFORT MEASURES RENDERED.
[2017-05-20] MEDS ORDERED: KETOROLAC TROMETHAMINE 15 MG/ML VIAL ONE (03:39)
--- NOTE | 2017-05-20 03:48 | NUR ---
MEDICATED PATIENT ORDERED BY DR CALDWELL.
[2017-05-20] MEDS ORDERED: KETOROLAC TROMETHAMINE INJ 30 MG/ML VIAL IM ONE (04:00)
[2017-05-20 06:34] VITALS: BP 121/84
--- NOTE | 2017-05-20 06:34 | NUR ---
Patient discharged to home in stable condition. Written and verbal after care instructions given. Patient verbalizes understanding of instruction. Patient is using cane to ambulate, vss. No further complaints.
== END 2017-05-20 06:35 | disposition home or self-care (01) ==
LOC: ER 03:19
DX: M79.605 Pain in left leg (principal); M79.604 Pain in right leg; G89.29 Other chronic pain; G62.9 Polyneuropathy, unspecified; Z79.01 Long term (current) use of anticoagulants; Z86.718 Personal history of other venous thrombosis and embolism; Z88.0 Allergy status to penicillin; Z88.2 Allergy status to sulfonamides; Z88.1 Allergy status to other antibiotic agents; Z88.5 Allergy status to narcotic agent; Z88.6 Allergy status to analgesic agent
CPT/HCPCS: 96372; 99283; A4606; J1885; Z7610

== ENCOUNTER 2017-10-31 01:47 | Inpatient (IN) | payer MEDICAID, MEDICARE ==
[~2017-10-31] VITALS: Ht 167.6 cm; Wt 95.7 kg
--- NOTE | 2017-10-31 02:01 | NUR ---
PT [id number] C/O BILATERAL LOWER EXTREM PAIN 04/22. "SOB" WITH CLEAR LUNG SOUNDS AUSCULTATED. SPO2 AT 99% RA. PT STATES SHE LEFT [place]ILDREN. DURING THE TRIP VIA TRAIN SHE STATED FEELING NAUSEATED AND SOB. UPON ARRIVAL, PT IS AAOX4. RESP EVEN AND UNLABORED. NO S/S OF ACUTE DISTRESS NOTED. VSS. PT ABLE TO SPEAK FULL SENTENCE WORDS. PT GOWNED AND PLACED ON MONITOR AND POX. PT SAFETY AND COMFORT MEASURES IN PLACE. AWAITING MD FOR EVAL.
[2017-10-31 03:12] LABS: BASOPHILS % (AUTO) 0.7 % (0.0-2.0); EOSINOPHILS # (AUTO) 0.1 /CMM (0.0-0.7); EOSINOPHILS % (AUTO) 1.4 % (0.0-6.0); HEMATOCRIT 33 % (33-45); HEMOGLOBIN 10.8 g/dL (11.5-14.8); LYMPHOCYTES % (AUTO) 27.1 % (20.0-44.0); MEAN CORPUSCULAR HEMOGLOBIN 28 PG (26.0-33.0); MEAN CORPUSCULAR HGB CONC 33 g/dl (31.0-36.0); MEAN CORPUSCULAR VOLUME 85 fL (82-100); MONOCYTES # (AUTO) 0.6 /CMM (0.1-1.30); MONOCYTES % (AUTO) 8.5 % (2.0-12.0); NEUTROPHILS # (AUTO) 4.6 /CMM (1.8-8.9); NEUTROPHILS % (AUTO) 62.3 % (43.0-81.0); PLATELET COUNT (AUTO) 378 /CMM (150-450); RDW COEFFICIENT OF VARIATION 15.6 (11.5-15.0); RED BLOOD CELL COUNT(AUTO) 3.86 MIL/uL (4.0-5.2); WHITE BLOOD COUNT (AUTO) 7.3 K/uL (4.3-11.0)
[2017-10-31 03:13] LABS: CALCIUM, SERUM 9.4 mg/dL (8.5-10.1); CARBON DIOXIDE 23 mmol/L (21-32); CHLORIDE 105 mmol/L (98-107); CREATININE 0.9 mg/dL (0.6-1.3); GLUCOSE 123 mg/dL (74-106); POTASSIUM 4.3 mmol/L (3.5-5.1); SODIUM SERUM 140 mmol/L (136-145); UREA NITROGEN, BLOOD 22 mg/dL (7-18)
[2017-10-31 03:23] LABS: TROPONIN I < 0.017 ng/mL (0.00-0.056)
[2017-10-31 03:25] LABS: INR 1.2 (0.87-1.13)
--- NOTE | 2017-10-31 03:57 | NUR ---
REPORT GIVEN TO ENHANCED ENVIRONMENTAL OPERATOR JAM FOR TONYA.
[2017-10-31] MEDS ORDERED: ACETAMINOPHEN 325 MG TABLET PO PRN (04:00)
[2017-10-31] MEDS ORDERED: ONDANSETRON HCL/PF 4 MG/2 ML VIAL IVP PRN (04:00)
[2017-10-31] MEDS ORDERED: HYDROCODONE/APAP 5/325MG 1 EACH TABLET PO PRN (04:00)
[2017-10-31] MEDS ORDERED: MAGNESIUM HYDROXIDE 30 ML UDC PO PRN (04:00)
[2017-10-31] MEDS ORDERED: MAG HYDROX/AL HYDROX/SIMETH 30 ML UDC PO PRN (04:00)
[2017-10-31] MEDS ORDERED: ZOLPIDEM TARTRATE 5 MG TABLET PO PRN (04:00)
[2017-10-31 04:10] VITALS: BP 134/64
--- NOTE | 2017-10-31 04:10 | NUR ---
ADMISSION NOTES: RECEIVED REPORT FROM HOV, DOCTOR OF NURSE ANESTHESIA PRACTICE, PT CAME IN FOR SOB NAUSEA BLE PAIN WITH ADMITTING DX OF ACUTE DYSPNEA WITH POSSIBLE P.E, PT BROUGHT TO THE UNIT VIA GURNEY, A/O X3 PLACED ON 2L NC, SPO2 99%, C/O 9/10 PAIN ON BLE AND HAND, IV ACCESS PATENT AND FLUSHING WELL, ON HL. BLE +3 PITTING EDEMA. DISCOLORATION NOTED. PLACED ON TELEMONITORING SINUS RHYTHM PAC HR 84. SKIN CHECKED PERFORMED NO SKIN ISSUES NOTED, NO PRESSURE ULCER NOTED. INVENTORY OF BELONGING PERFORMED AND SIGNED BY THE PT, PT HOME MEDICATION SENT TO PHARMACY, MED LIST UPDATED. VS TAKEN AND RECORDED, SAFETY PRECAUTIONS FOR FALL INITIATED CALL LIGHT IN REACH, WILL CONTINUE MONITORING PT
--- NOTE | 2017-10-31 04:11 | NUR ---
RN NOTES: PER REPORT, PT FOR VQ SCAN BUT UNABLE TO DO PER DEVULCANIZER CHARGER HOV, NO ONE'S AVAILABLE TO DO IT SO IT WILL BE DONE IN AM
[2017-10-31 04:30] VITALS: BP 134/69
[2017-10-31] MEDS: HYDROCODONE/APAP 10/325MG 1 EA TABLET PO PRN ×2 (05:02→10:45)
--- NOTE | 2017-10-31 05:02 | NUR ---
PRN NORCO, MILK OF MAGNESIA: PT C/O HEARTBURN AND PAIN 9/10 ON BLE AND HAND, REQUESTING FOR PAIN MEDICATION, PRN NORCO 10/325 MG TAB PO ADMINISTERED AT THIS TIME, ALSO MOM ADMINISTERED, WILL CONTINUE MONITORING PT
[2017-10-31] MEDS ORDERED: AMLO5TAB2 PO (06:18)
[2017-10-31] MEDS ORDERED: GABA-532 PO (06:18)
[2017-10-31] MEDS ORDERED: CARV6.252 PO (06:18)
[2017-10-31] MEDS ORDERED: TRAM50TA2 PO (06:18)
[2017-10-31] MEDS ORDERED: PREG50CA PO (06:18)
[2017-10-31] MEDS ORDERED: CHLO25TA2 PO (06:18)
[2017-10-31] MEDS ORDERED: FURO20TA4 PO (06:18)
--- NOTE | 2017-10-31 06:38 | NUR ---
STILL CLEANER CLOSING NOTES: PT IN BED, AWAKE, REMAINS ON 2L VIA NC, DENIES ANY SOB, STATED HER PAIN IS TOLERABLE AT 3/10. REMAINS ON SINUS RHYTHM WITH PAC HR 80. VS REMAINS STABLE, NEEDS ATTENDED, FOR VQ SCAN TODAY. SAFETY PRECAUTIONS FOR FALL REMAINS ENGAGED, CALL LIGHT IN REACH, WILL ENDORSE TO DAY RN FOR TONYA.
--- NOTE | 2017-10-31 07:30 | NUR ---
COMMERCIAL CONSTRUCTION SUPERINTENDENT NOTES PT IN BED, AWAKE, ALERT AND ORIENTED, BREATHING PATTERN NORMAL AND NOT LABORED, WITH COMPLAINT OF BLE PAIN, PLEASANT AND COOPERATIVE, CALL LIGHT WITHIN REACH, NEEDS ATTENDED.
[2017-10-31 08:00] VITALS: BP 121/68
[2017-10-31] MEDS: RIVAROXABAN 15 MG TABLET PO SCH ×2 (08:19→17:00)
[2017-10-31 08:30] LABS: MAGNESIUM 1.9 mg/dL (1.8-2.4); PHOSPHORUS 3.3 mg/dL (2.5-4.9)
[2017-10-31] MEDS ORDERED: RIVAROXABAN 10 MG TABLET PO SCH (09:30)
[2017-10-31] MEDS: PREGABALIN 25 MG CAPSULE PO SCH ×2 (10:44→17:00)
[2017-10-31] MEDS: CARVEDILOL 6.25 MG TABLET PO SCH ×2 (10:44→17:00)
[2017-10-31] MEDS: FUROSEMIDE 20 MG TABLET PO SCH (10:44)
[2017-10-31] MEDS: AMLODIPINE BESYLATE 5 MG TABLET PO SCH (10:44)
[2017-10-31] MEDS: GABAPENTIN 100 MG CAPSULE PO SCH ×2 (10:44→17:00)
--- NOTE | 2017-10-31 12:32 | NUR ---
BANK COURIER NOTES PT IN BED, ASLEEP, EASY TO AROUSE, PAIN MEDICATION GIVEN FOR BLE PAIN, SEEN BY DR. WHITFIELD, PLAN OF CARE DISCUSSED WITH PT, VERBALIZED UNDERSTANDING, CALL LIGHT WITHIN REACH, NEEDS ATTENDED.
--- NOTE | 2017-10-31 13:28 | NUR ---
PATIENT PREFERS FEMALE IT PROGRAMMER TO PERFORM DUPLEX VENOUS. STUDY TO BE DONE LATER. INFORMED ATTENDING NURSE (YESI)
--- NOTE | 2017-10-31 14:50 | NUR ---
PT COMPLAINED ABOUT ROOMMATE, AND STATED: " SHE GIVES ME NEGATIVE ENERGY AND I'M REQUESTING TO GET HER OUT OF MY ROOM, I DONT LIKE HER." NEW ROOM OFFERED AND W/C PROVIDED TO TRANSFER PT IN NEW ROOM, HOWEVER SHE REFUSED TO MOVE AND STATED TO REMOVE HER ROOMMATE. WILL DISCUSSED WITH ROOMMATE ROOM CHANGE.
--- NOTE | 2017-10-31 15:00 | NUR ---
PT'S ROOMMATE MOVED TO NEW ROOM, WILL MONITOR PT.
--- NOTE | 2017-10-31 16:00 | NUR ---
UROLOGIC NURSE NOTES PT REFUSED VITAL SIGNS TO BE TAKEN AND REFUSED TELE BOX MONITORING.
--- NOTE | 2017-10-31 16:10 | NUR ---
RN MS NOTES PT IN AWAKE, SITTING IN BED, ALERT, BREATHING PATTERN NORMAL, ASKED IF SHE IS ON PAIN, PT DOES NOT WANT TO ANSWER, STATED THAT SHE VOMITED, OFFERED MEDICATION FOR VOMITING, STATED THAT SHE IS NOT TAKING ANY MEDICATION, PT CALLED 911 AND STARTED COMPLAINING ABOUT THE STAFF AND THE HOSPITAL, WHEN ASKED IF SHE NEEDED SOMETHING, PT SAID THAT EVERYBODY IS GIVING HER AN ATTITUDE AND THAT PEOPLE ARE STANDING AT HER DOORWAY EVERY FIVE MINUTES CHANNELLING NEGATIVE ENERGY TO HER.
--- NOTE | 2017-10-31 16:48 | NUR ---
CERTIFIED TOWER CLIMBER NOTES PT SAID THAT SHE IS HUNGRY, OFFERED SNACKS, PROVIDED PT WITH TUNA SANDWICH AND SODA WHICH SHE REQUESTED, OFFERED A GOWN CHANGE, PT SAID TO JUST LEAVE IT THERE AND NOT TOUCH ANYTHING UNTIL THE POLICE COMES.
--- NOTE | 2017-10-31 17:00 | NUR ---
RANGE MASTER NOTES PT SITTING IN BED, AWAKE, ALERT AND ORIENTED, NOT IN DISTRESS, WHEN ASKED IS SHE IS IN PAIN, PT STATED THAT SHE WOULD NOT TAKE ANYTHING UNTIL THE POLICE COMES, PT REFUSED ALL HER 5PM MEDS INCLUDING ZOFRAN, PREFERED TO HAVE THE DOOR CLOSED.
--- NOTE | 2017-10-31 17:33 | NUR ---
AT 1735, ECHO/ASSISTANT PLANT CONTROLLER CAME UP TO PATIENT'S ROOM TO PERFORM DUPLEX VENOUS LE BILATERAL BUT PATIENT REFUSED. PATIENT'S NURSE WAS AWARE.
--- NOTE | 2017-10-31 18:00 | NUR ---
HEAD START ASSISTANT TEACHER NOTES DR. WHITFIELD INFORMED OF PT'S CURRENT BEHAVIOR AND REFUSALS WITH MEDS AND DIAGNOSTIC PROCEDURES, ORDERED FOR PSYCH EVAL.
--- NOTE | 2017-10-31 18:20 | NUR ---
CURRICULUM CONSULTANT NOTES PT IN BED, ASLEEP, EASY TO AROUSE, CALM AND DOES NOT HAVE ANY COMPLAINT AT THIS TIME, RESPIRATIONS NORMAL, CALL LIGHT WITHIN REACH.
--- NOTE | 2017-10-31 19:00 | NUR ---
RN MS NOTES SPOKE WITH PT, WITH CHARGE NURSE, INFORMED PT THAT WE RECEIVED A CALL FROM 911, PT SAID THAT WE SHOULD NOT BE TELLING HER THAT BECAUSE THAT IS NOT THE LAW, MD AND DINING ROOM HOSTESS INFORMED OF PT'S BEHAVIOR.
--- NOTE | 2017-10-31 19:30 | NUR ---
SALES ESTIMATOR OPENING NOTES: RECEIVED PATIENT SITTING ON BED, AOX3, ON ROOM AIR, BREATHING EVEN AND UNLABORED, BREATH SOUNDS CLEAR TO AUSCULTATION. PATIENT STATES, "I DON'T FEEL GOOD, I FEEL SICK", WHEN ASKED HOW SHE FEELS, AND STATES THAT SHE HAS HARDLY BEEN ABLE TO EAT, COMPLAINS OF NAUSEA, BUT WHEN OFFERED IV ZOFRAN, PATIENT STATES, "I DON'T WANT ANYTHING INJECTED IN ME." PATIENT THEN TALKED TO AM RN, YESI, SAYING THAT SHE WILL MNOT LET NURSE GET AWAY WITH "WHAT SHE DID", AND SAID THAT THE AUTHORITIES AND HER MANDAEISM ARE ALL AWARE. PATIENT ALSO STATES THAT THERE IS A LOT OF BAD ENERGY. TRIED TO REASSURE PATIENT, AND OFFERED OTHER FOOD, BUT PATIENT DECLINES. PROVIDED FOR COMFORT, SAFETY AND PRIVACY. WILL CONT TO MONITOR.
--- NOTE | 2017-10-31 20:00 | NUR ---
RN NOTES: PATIENT REFUSES VS TO BE CHECKED AT THIS TIME.
[2017-10-31] MEDS ORDERED: ONDANSETRON 4 MG TAB.RAPDIS PO PRN (21:00)
--- NOTE | 2017-10-31 22:52 | NUR ---
RN NOTES: ROUNDS DONE ON PATIENT. PATIENT ON BED. ASKED IF SHE STILL FEELS NAUSEOUS, AND IF SHE NEEDS ZOFRAN, HER PREFERRED TABLET FORM CAN BE GIVEN. PATIENT JUST SAID, " UNA, DON'T COME NEAR ME, I DON'T NEED ANYTHING RIGHT NOW." PT ASKED FOR DOOR TO BE CLOSED. WILL CONT TO MONITOR.
--- NOTE | 2017-11-01 00:10 | NUR ---
RN NOTES: REFUSED VS CHECK AT THIS TIME.
[2017-11-01 04:00] VITALS: BP 151/70
--- NOTE | 2017-11-01 05:47 | NUR ---
RN NOTES: ASKED TO CHECK PATIENT'S VS, EXPLAINED REGULATIONS IN HOSPITAL, GAVE PATIENT EDUCATION RE NEED FOR COMPLIANCE. PATIENT DID NOT ALLOW NURSE TO COME CLOSE TO BED, APPEARS UPSET, SAYING THAT SHE STILL FEELS SICK, BUT DOES NOT TRUST ANYONE TO GIVE HER MEDICATION. SHE STATES THAT "YOU ALL ARE GIVING ME BAD ENERGY". 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 PATIENT THREATENED TO TAKE LEGAL ACTION. VS REFUSED. ALVARO VELÁSQUEZ WAS ALSO REFUSED.
--- NOTE | 2017-11-01 06:55 | NUR ---
MACHINE PROGRAMMER CLOSING NOTES: PATIENT IN BED, AOX3, ON ROOM AIR, BREATHING EVEN AND UNLABORED. STILL UNCOOPERATIVE, STILL WITH PARANOID THOUGHTS/ DELUSION OF PERSECUTION. NEEDS ATTENDED PATIENT ALLOWS. BED IN LOWEST AND LOCKED POSITION, SIDERAILS UP X2. WILL ENDORSE TO AM RN FOR TONYA.
--- NOTE | 2017-11-01 07:42 | NUR ---
TELE/RN OPENING NOTE PATIENT IN BED IN STABLE CONDITION. A/O X 3, NO SIGNS OF ACUTE DISTRESS. DENIES ANY PAIN OR DISCOMFORT. ON TELE MONITOR, REFUSING TELE MONITOR, OFFERED X 3 WITH RISKS AND BENEFITS EXPLAINED STILL CONTINUE TO REFUSE. ALL NEEDS ATTENDED TO AT THIS TIME. CALL LIGHT WITHIN REACH. WILL CONTINUE TO MONITOR TO ENSURE SAFETY.
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
[2017-11-01] MEDS: TRAMADOL HCL 50 MG TABLET PO SCH (08:58)
[2017-11-01] MEDS: AMLODIPINE BESYLATE 5 MG TABLET PO SCH (08:58)
[2017-11-01] MEDS: CARVEDILOL 6.25 MG TABLET PO SCH ×2 (08:58→17:00)
[2017-11-01] MEDS: GABAPENTIN 100 MG CAPSULE PO SCH ×2 (08:58→17:00)
[2017-11-01] MEDS: FUROSEMIDE 20 MG TABLET PO SCH (08:58)
[2017-11-01] MEDS: PREGABALIN 25 MG CAPSULE PO SCH ×2 (08:58→17:01)
[2017-11-01] MEDS: RIVAROXABAN 15 MG TABLET PO SCH ×2 (08:58→17:05)
--- NOTE | 2017-11-01 10:35 | NUR ---
MS/RN REFUSE LABS PATIENT REFUSED MORNING LABS, OFFERED X 3 WITH RISKS AND BENEFITS EXPLAINED STILL CONTINUE TO REFUSE.
--- NOTE | 2017-11-01 11:29 | NUR ---
WINSTON was requested to see pt. bedside by nursing staff, since pt. was difficult with the staff and refusing lab work etc. WINSTON met with pt. bedside. Pt. is alert and oriented x 4. Pt. was polite with SW during the conversation. Pt. appeared to be very dissatisfied with her experience with the staff. Pt. complained stating the staff were not adhering to her medical/ spiritual needs and were being discriminatory. Pt. also appeared to be upset with her roommate who pt. stated was racist. Pt's roommate was then transferred to a different room. WINSTON provided active listening and emotional support to the pt. Pt. stated she is from [facility] and came to . to visit her children. Pt. receives some sort of pension but appeared guarded regarding providing the amount she receives. Pt. states she would like to live independently. 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 WINSTON tried to ask pt. what her discharge plan is and pt. continued to talk about racism and discrimination and her civil rights. WINSTON informed pt. she will return with the [facility] resource book so pt. can look into assisted living etc. Pt. agreed. Addendum: 11/01/17 at 1148 by ADELAIDA MONTERO WINSTON along with piano case maker Gely Ritchie met with pt. bedside to discuss discharge plan and to give pt. the [facility] booklet. Pt. was initially polite with WINSTON and piano case maker Gely Ritchie but got upset during the conversation stating again that the staff are racist and discriminatory and that they lack spirituality. SW provided active listening and tried to explain to the pt. that we have no control what spiritual beliefs the staff have. Pt. then stated that SW lacked compassion and empathy. SW explained to pt. that she understands pt's frustration. Pt. went on to say that since SW has not marched in the civil rights movement, SW has no awareness. privacy compliance manager Gely Ritchie discussed discharge planning. Pt. stated she will look at the booklet and follow up. Towards the end of the conversation pt. was more cooperative and thanked Gely Rithcie and WINSTON for their assistance.
[2017-11-01] MEDS ORDERED: LORAZEPAM 1 MG TABLET PO PRN (13:30)
--- NOTE | 2017-11-01 17:15 | NUR ---
MS/RN REFUSED VITAL SIGNS PATIENT REFUSED VITAL SIGNS. OFFERED X 3 WITH RISKS AND BENEFITS EXPLAINED AND STILL CONTINUE TO REFUSE. ALSO EXPLAINED THAT EVENING MEDICATION COREG CANT BE ADMINISTERED WITHOUT BLOOD PRESSURE MONITOR STILL CONTINUE TO REFUSE AND ALSO REFUSED 5 PM COREG AND NEURONTIN. WILL CONTINUE TO MONITOR.
--- NOTE | 2017-11-01 18:16 | NUR ---
MS/RN CLOSING NOTE PATIENT IN BED IN STABLE CONDITION. A/O X 3. NO SIGNS OF ACUTE DISTRESS. NO COMPLAIN OF PAIN OR DISCOMFORT. ALL NEEDS ATTENDED TO. CALL LIGHT WITHIN REACH. WILL ENDORSE TO NEXT SHIFT FOR CONTINUITY OF CARE.
--- NOTE | 2017-11-01 19:30 | NUR ---
RN OPENING NOTES PATIENT RECEIVED IN ROOM, AMBULATING WITH A CANE FROM BATHROOM TO BED. ABLE TO AMBULATE SAFELY. PATIENT IS ALERT AND ORIENTED X 3, ABLE TO MAKE NEEDS KNOWN, NOTED WITH NO SOB, BREATHING EVEN AND UNLABORED AND IN NO ACUTE DISTRESS. ALL PATIENT'S NEEDS ATTENDED TO AT THIS TIME. PLACED BED IN LOW POSITION AND CALL LIGHT WITHIN EASY REACH. WILL CONTINUE TO MONITOR.
[2017-11-01 20:00] VITALS: BP 128/67
--- NOTE | 2017-11-01 20:22 | NUR ---
RN NOTE PATIENT VERBALIZED LEG PAIN AT 6/10 AND REQUESTED FOR PAIN MEDICATION. BROUGHT NORCO 5/325 MG I TAB PO BUT PATIENT REFUSED TO TAKE MEDICATION. EXPLAINED RISKS AND BENEFITS TO PATIENT X 3 BUT PATIENT HAS DECIDED THAT SHE DOESN'T NEED THE PAIN MEDICATION AT THIS TIME. RESPECTED PATIENT'S RIGHTS. WILL CONTINUE TO MONITOR PATIENT. PLACED CALL LIGHT WITHIN EASY REACH. SAFETY PRECAUTIONS IN PLACE.
--- NOTE | 2017-11-01 20:25 | NUR ---
RN NOTE NORCO 5/325 MG 1 TAB WASTED WITH FLORY BLACK.
--- NOTE | 2017-11-02 06:23 | NUR ---
RN CLOSING NOTES PATIENT IN BED, ASLEEP BUT EASILY AROUSABLE, ALERT AND ORIENTED X 4, NOTED PT WITH NO SOB, BREATHING EVEN AND UNLABORED, NO C/O PAIN AT THIS TIME AND IS IN NO ACUTE DISTRESS. ALL PATIENT'S NEEDS ATTENDED TO THROUGHOUT THE SHIFT. PLACED BED IN LOW POSITION AND LOCKED IN PLACE. WILL ENDORSE TO AM SHIFT NURSE FOR CONTINUITY OF CARE.
--- NOTE | 2017-11-02 07:40 | NUR ---
MS/RN OPENING NOTE PATIENT IN BED IN STABLE CONDITION. A/O X 3, NO SIGNS OF ACUTE DISTRESS. NO COMPLAIN OF PAIN OR DISCOMFORT. ALL NEEDS ATTENDED TO. CALL LIGHT WITHIN REACH. WILL CONTINUE TO MONITOR TO ENSURE SAFETY.
[2017-11-02 08:27] VITALS: BP 143/70
[2017-11-02] MEDS: CARVEDILOL 6.25 MG TABLET PO SCH ×2 (09:00→17:00)
[2017-11-02] MEDS: TRAMADOL HCL 50 MG TABLET PO SCH (09:00)
[2017-11-02] MEDS: GABAPENTIN 100 MG CAPSULE PO SCH ×2 (09:00→17:00)
[2017-11-02] MEDS: FUROSEMIDE 20 MG TABLET PO SCH (09:00)
[2017-11-02] MEDS: AMLODIPINE BESYLATE 5 MG TABLET PO SCH (09:00)
[2017-11-02] MEDS ORDERED: HYDROCHLOROTHIAZIDE 25 MG TABLET PO SCH (09:00)
[2017-11-02] MEDS: RIVAROXABAN 15 MG TABLET PO SCH ×2 (09:03→17:00)
[2017-11-02] MEDS: PREGABALIN 25 MG CAPSULE PO SCH ×2 (09:05→17:00)
--- NOTE | 2017-11-02 17:47 | NUR ---
MS/RN PATIENT REFUSE LYRICA PATIENT REFUSE LYRICA. OFFERED X 3 WITH RISKS AND BENEFITS EXPLAINED STILL CONTINUE TO REFUSE. MEDICATION RETURNED BACK TO [facility] WITNESSED BY KRISTINE DEUTSCH.
--- NOTE | 2017-11-02 17:53 | NUR ---
MS/RN NOTES PATIENT A/O X 4. NO SIGNS OF ACUTE DISTRESS. NO COMPLAIN OF PAIN OR DISCOMFORT. PROVIDING DISCHARGE INSTRUCTIONS AND TEACHINGS. PATIENT REFUSE TO LISTEN AND VERBALIZED, "GET OUT OF MY ROOM NOW, I DON'T NEED ANY DISCHARGE INSTRUCTIONS, I KNOW MYSELF." CHARGE NURSE MADE AWARE. CALLED CASE MGMT KEYLA FALLON AND CLAUS MADE AWARE REGARDING PATIENT'S BEHAVIOR, PER KEYLA FALLON, THEY WILL COME AND TALK TO PATIENT. AT THIS MOMENT PATIENT STARTED TO WALK TOWARDS ELEVATOR, EXPLAINED PATIENT THAT HER RIGHT AC IV ACCESS NEEDS TO TAKEN OFF BEFORE SHE LEAVES. PATIENT REFUSE TO HAVE HER IV ACCESS OUT AND TRYING TO LEAVE WITH IV ACCESS, VERBALIZING, "IF YOU COME CLOSE TO ME, I WILL KICK YOU." PATIENT NOTED VERY AGITATED AND CALLED TASHA BURGER. TASHA BURGER TEAM ARRIVED, PATIENT BY ELEVATOR, STILL AGITATED AND SCRATCH ONE OF THE TASHA BURGER STAFF AROUND NECK AREA AND LEFT SIDE OF FACE. TASHA BURGER TEAM REMOVED RIGHT AC # 20 IV ACCESS. PATIENT STILL AGITATED, TAKEN DOWNSTAIRS BY FREELANCE DIGITAL PROJECT MANAGER FOR DISCHARGE. DISCHARGE PAPER AND PATIENT'S HOME MEDS PROVIDED.
== END 2017-11-02 18:04 | disposition home or self-care (01) | DRG 197 ==
LOC: ER 01:51 → TELE 03:46 → MED 11-01 08:14
PROVIDERS: ADMIT Nurse Practitioner Acute Care; ATTEND Family Medicine
DX: I82.403 Acute embolism and thrombosis of unspecified deep veins of lower extremity, bilateral (principal); N17.9 Acute kidney failure, unspecified; G62.9 Polyneuropathy, unspecified; J44.9 Chronic obstructive pulmonary disease, unspecified; Z86.711 Personal history of pulmonary embolism; Z79.01 Long term (current) use of anticoagulants; Z86.718 Personal history of other venous thrombosis and embolism; Z91.19 Patient's noncompliance with other medical treatment and regimen; Z88.1 Allergy status to other antibiotic agents; Z88.5 Allergy status to narcotic agent; Z88.0 Allergy status to penicillin; Z88.2 Allergy status to sulfonamides; D50.9 Iron deficiency anemia, unspecified; D63.8 Anemia in other chronic diseases classified elsewhere; R73.9 Hyperglycemia, unspecified; Z68.34 Body mass index [BMI] 34.0-34.9, adult; E66.9 Obesity, unspecified
CPT/HCPCS: 36415; 71045-TC; 78582; 80048-TC; 80061-TC; 83735-TC; 84100-TC; 84484-TC; 85025-TC; 85730-TC; 87081-TC; 93307-TC; A4606; A9540; A9567; J2405; Z7610

== ENCOUNTER 2018-02-18 19:04 | Emergency (ER) | payer MEDICARE, MEDICAID ==
[~2018-02-18] VITALS: Ht 165.1 cm; Wt 85.7 kg
[~2018-02-18 19:04] MED LIST changes: +AMLO5TAB2 PO; +CHLO25TA2 PO; +FURO20TA4 PO; +GABA-532 PO; +PREG50CA PO; +TRAM50TA2 PO
[2018-02-18] MEDS ORDERED: ONDANSETRON HCL/PF 4 MG/2 ML VIAL ONE (19:58)
[2018-02-18] MEDS ORDERED: HYDROMORPHONE INJ 2 MG/ML DISP.SYRIN ONE (19:58)
[2018-02-18] MEDS ORDERED: HYDROMORPHONE INJ 2 MG/ML DISP.SYRIN IV ONE (20:00)
[2018-02-18] MEDS ORDERED: ONDANSETRON HCL/PF 4 MG/2 ML VIAL IVP ONE (20:00)
[2018-02-18 20:55] LABS: BASOPHILS # (AUTO) 0.1 /CMM (0.0-0.2); BASOPHILS % (AUTO) 0.7 % (0.0-2.0); EOSINOPHILS % (AUTO) 2.4 % (0.0-6.0); HEMATOCRIT 30 % (33-45); LYMPHOCYTES # (AUTO) 1.7 /CMM (0.8-4.8); LYMPHOCYTES % (AUTO) 22.3 % (20.0-44.0); MEAN CORPUSCULAR HEMOGLOBIN 29 PG (26.0-33.0); MEAN CORPUSCULAR HGB CONC 34 g/dl (31.0-36.0); MEAN CORPUSCULAR VOLUME 85 fL (82-100); MONOCYTES # (AUTO) 0.5 /CMM (0.1-1.30); MONOCYTES % (AUTO) 6.8 % (2.0-12.0); NEUTROPHILS # (AUTO) 5.3 /CMM (1.8-8.9); NEUTROPHILS % (AUTO) 67.8 % (43.0-81.0); PLATELET COUNT (AUTO) 209 /CMM (150-450); RDW COEFFICIENT OF VARIATION 16.2 (11.5-15.0); RED BLOOD CELL COUNT(AUTO) 3.52 MIL/uL (4.0-5.2); WHITE BLOOD COUNT (AUTO) 7.8 K/uL (4.3-11.0)
[2018-02-18] MEDS ORDERED: HYDROCODONE/APAP 10/325MG 1 EA TABLET ONE (20:57)
[2018-02-18] MEDS ORDERED: HYDROCODONE/APAP 10/325MG 1 EA TABLET PO ONE (21:00)
[2018-02-18 21:02] LABS: INR 0.98 (0.85-1.15)
[2018-02-18 21:04] LABS: CARBON DIOXIDE 24 mmol/L (21-32); CHLORIDE 110 mmol/L (98-107); CREATININE 0.8 mg/dL (0.6-1.3); GLUCOSE 102 mg/dL (74-106); POTASSIUM 3.5 mmol/L (3.5-5.1); SODIUM SERUM 141 mmol/L (136-145); UREA NITROGEN, BLOOD 20 mg/dL (7-18)
[2018-02-18 21:08] LABS: TROPONIN I < 0.017 ng/mL (0.00-0.056)
[2018-02-18 21:17] LABS: ALANINE AMINOTRANSFERASE 12 U/L (12-78); ALKALINE PHOSPHATASE 106 U/L (46-116); ASPARTATE AMINOTRANSFERASE 7 U/L (15-37); B-TYPE NATRIURETIC PEPTIDE 528 PG/ML (0-125); BILIRUBIN,TOTAL 0.2 mg/dL (0.2-1.0)
[2018-02-18] MEDS ORDERED: HYDROCODONE/APAP 5/325MG 1 EACH TABLET PO ONE (23:00)
[2018-02-18] MEDS ORDERED: HYDROCODONE/APAP 5/325MG 1 EACH TABLET ONE (23:03)
[2018-02-19 05:17] VITALS: BP 122/72
== END 2018-02-19 05:19 | disposition home or self-care (01) ==
LOC: ER 19:06
DX: R60.0 Localized edema (principal); Z88.0 Allergy status to penicillin; Z88.2 Allergy status to sulfonamides; Z88.5 Allergy status to narcotic agent; Z88.6 Allergy status to analgesic agent; Z88.1 Allergy status to other antibiotic agents; Z86.718 Personal history of other venous thrombosis and embolism; G62.9 Polyneuropathy, unspecified
CPT/HCPCS: 36415; 71045; 78582; 80048; 80076; 83880; 84484; 85025; 85730; 93005; 93970; 96374; 99285; A4606; A9540; A9567; J2405; J1170; Z7610

== ENCOUNTER 2018-08-09 02:10 | Inpatient (IN) | payer MEDICAID, MEDICARE ==
[~2018-08-09] VITALS: Ht 167.6 cm; Wt 99.8 kg
[~2018-08-09 02:10] MED LIST changes: -AMLO5TAB2 PO; +AMLO5TAB9 PO
[2018-08-09] MEDS ORDERED: NITROGLYCERIN PACKET 1 GM PACKET TD ONE (02:30)
[2018-08-09] MEDS ORDERED: ASPIRIN 81 MG TAB.CHEW PO ONE (02:30)
[2018-08-09] MEDS ORDERED: NITROGLYCERIN PACKET 1 GM PACKET ONE (02:49)
[2018-08-09] MEDS ORDERED: TRAMADOL HCL 50 MG TABLET ONE (02:49)
[2018-08-09 02:56] LABS: BASOPHILS # (AUTO) 0.1 /CMM (0.0-0.2); EOSINOPHILS % (AUTO) 1.5 % (0.0-6.0); HEMATOCRIT 37 % (33-45); HEMOGLOBIN 11.9 g/dL (11.5-14.8); LYMPHOCYTES # (AUTO) 1.8 /CMM (0.8-4.8); LYMPHOCYTES % (AUTO) 28.4 % (20.0-44.0); MEAN CORPUSCULAR HGB CONC 33 g/dl (31.0-36.0); MEAN CORPUSCULAR VOLUME 87 fL (82-100); MONOCYTES # (AUTO) 0.6 /CMM (0.1-1.30); MONOCYTES % (AUTO) 9.7 % (2.0-12.0); NEUTROPHILS # (AUTO) 3.8 /CMM (1.8-8.9); NEUTROPHILS % (AUTO) 59.4 % (43.0-81.0); PLATELET COUNT (AUTO) 218 /CMM (150-450); RED BLOOD CELL COUNT(AUTO) 4.22 MIL/uL (4.0-5.2); WHITE BLOOD COUNT (AUTO) 6.4 K/uL (4.3-11.0)
[2018-08-09] MEDS ORDERED: TRAMADOL HCL 50 MG TABLET PO ONE (03:00)
[2018-08-09 03:02] LABS: CALCIUM, SERUM 9.2 mg/dL (8.5-10.1); CARBON DIOXIDE 27 mmol/L (21-32); CHLORIDE 104 mmol/L (98-107); CREATININE 0.9 mg/dL (0.6-1.3); GLUCOSE 113 mg/dL (74-106); POTASSIUM 3.5 mmol/L (3.5-5.1); SODIUM SERUM 142 mmol/L (136-145); UREA NITROGEN, BLOOD 23 mg/dL (7-18)
[2018-08-09 03:16] LABS: ALANINE AMINOTRANSFERASE 19 U/L (12-78); ALBUMIN 3.4 g/dL (3.4-5.0); ALKALINE PHOSPHATASE 101 U/L (46-116); ASPARTATE AMINOTRANSFERASE 15 U/L (15-37); B-TYPE NATRIURETIC PEPTIDE 86 PG/ML (0-125); BILIRUBIN,DIRECT 0.1 mg/dL (0.0-0.2); BILIRUBIN,TOTAL 0.4 mg/dL (0.2-1.0); TOTAL PROTEIN, SERUM 7.9 g/dL (6.4-8.2)
[2018-08-09 04:02] LABS: D-DIMER 1.91 mg/L(FEU (0.17-0.50)
[2018-08-09 06:18] VITALS: BP 123/62
[2018-08-09] MEDS ORDERED: MORPHINE SULFATE INJ 2 MG/ML DISP.SYRIN IV PRN ×2 (07:00→08:30)
[2018-08-09] MEDS ORDERED: NITROGLYCERIN 0.4 MG/TAB BOTTLE SL PRN (07:00)
[2018-08-09] MEDS ORDERED: HYDR25TA4 PO (07:57)
[2018-08-09] MEDS ORDERED: ZOLP5TAB2 PO (07:57)
[2018-08-09] MEDS ORDERED: ONDA4TAB5 PO (07:57)
[2018-08-09] MEDS ORDERED: FERR325T23 PO (07:57)
[2018-08-09] MEDS ORDERED: HYDR-4384 PO (07:57)
[2018-08-09] MEDS ORDERED: ACET-868 PO (07:57)
[2018-08-09] MEDS ORDERED: APIX5TAB PO (07:57)
[2018-08-09] MEDS ORDERED: FAMO40TA7 PO (07:57)
[2018-08-09 08:00] VITALS: BP_SYST 151; BP_DIAS 82; BP_DIAS 84
[2018-08-09] MEDS: ENOXAPARIN SODIUM 60 MG/0.6 ML DISP.SYRIN SQ SCH ×3 (08:07→21:55)
[2018-08-09] MEDS: CARVEDILOL 6.25 MG TABLET PO SCH ×2 (08:08→08:55)
[2018-08-09] MEDS ORDERED: CARVEDILOL 6.25 MG TABLET PO ONE (11:00)
[2018-08-09] MEDS: hydrALAZINE HCL 50 MG TABLET PO SCH ×2 (11:24→16:13)
[2018-08-09 12:00] VITALS: BP 104/68
[2018-08-09] MEDS: NITROGLYCERIN 30 GM TUBE TP SCH ×2 (13:46→21:57)
[2018-08-09 15:40] VITALS: BP 119/56
[2018-08-09 16:00] VITALS: BP 119/56
[2018-08-09 20:00] VITALS: BP 122/59
[2018-08-09] MEDS ORDERED: CARVEDILOL 6.25 MG TABLET PO SCH (21:00)
[2018-08-10 04:00] VITALS: BP 103/69
[2018-08-10 08:00] VITALS: BP 134/74
[2018-08-10] MEDS: hydrALAZINE HCL 50 MG TABLET PO SCH ×3 (08:07→16:27)
[2018-08-10] MEDS: ENOXAPARIN SODIUM 60 MG/0.6 ML DISP.SYRIN SQ SCH ×2 (08:09→20:29)
[2018-08-10] MEDS: NITROGLYCERIN 30 GM TUBE TP SCH ×2 (08:10→20:27)
[2018-08-10] MEDS: CLOPIDOGREL BISULFATE 75 MG TABLET PO SCH (09:40)
[2018-08-10] MEDS: ATORVASTATIN 10 MG TABLET PO SCH (09:40)
[2018-08-10] MEDS: CARVEDILOL 12.5 MG TABLET PO SCH ×2 (09:41→20:27)
[2018-08-10 11:25] LABS: BASOPHILS % (AUTO) 0.5 % (0.0-2.0); EOSINOPHILS % (AUTO) 1.4 % (0.0-6.0); HEMATOCRIT 35 % (33-45); HEMOGLOBIN 11.7 g/dL (11.5-14.8); LYMPHOCYTES # (AUTO) 1.7 /CMM (0.8-4.8); LYMPHOCYTES % (AUTO) 25.4 % (20.0-44.0); MEAN CORPUSCULAR HGB CONC 33 g/dl (31.0-36.0); MEAN CORPUSCULAR VOLUME 87 fL (82-100); MONOCYTES # (AUTO) 0.7 /CMM (0.1-1.30); MONOCYTES % (AUTO) 9.6 % (2.0-12.0); NEUTROPHILS # (AUTO) 4.3 /CMM (1.8-8.9); NEUTROPHILS % (AUTO) 63.1 % (43.0-81.0); PLATELET COUNT (AUTO) 207 /CMM (150-450); RED BLOOD CELL COUNT(AUTO) 4.05 MIL/uL (4.0-5.2); WHITE BLOOD COUNT (AUTO) 6.8 K/uL (4.3-11.0)
[2018-08-10 11:38] LABS: CALCIUM, SERUM 8.8 mg/dL (8.5-10.1); CARBON DIOXIDE 27 mmol/L (21-32); CHLORIDE 107 mmol/L (98-107); CREATININE 0.9 mg/dL (0.6-1.3); GLUCOSE 102 mg/dL (74-106); MAGNESIUM 1.9 mg/dL (1.8-2.4); PHOSPHORUS 2.4 mg/dL (2.5-4.9); POTASSIUM 3.3 mmol/L (3.5-5.1); SODIUM SERUM 143 mmol/L (136-145); UREA NITROGEN, BLOOD 17 mg/dL (7-18)
[2018-08-10 11:41] LABS: CHOLESTEROL 146 mg/dL (<200); HDL CHOLESTEROL 55 mg/dL (40-60); LDL 79 mg/dL (0-99); TRIGLYCERIDES 76 mg/dL (30-150)
[2018-08-10] MEDS ORDERED: POTASSIUM CHLORIDE 20 MEQ TAB.PRT.SR PO ONE (12:30)
[2018-08-10] MEDS ORDERED: ONDANSETRON 4 MG TAB.RAPDIS PO PRN (12:30)
[2018-08-10 16:00] VITALS: BP 119/63
[2018-08-10] MEDS: PREGABALIN 25 MG CAPSULE PO SCH (16:27)
[2018-08-10] MEDS: GABAPENTIN 100 MG CAPSULE PO SCH (16:27)
[2018-08-10] MEDS: FERROUS SULFATE (325 MG) 325 MG/TAB TABLET PO SCH (16:28)
[2018-08-10 20:00] VITALS: BP 106/63
[2018-08-11 04:00] VITALS: BP 116/75
[2018-08-11 08:00] VITALS: BP 124/76
[2018-08-11] MEDS: hydrALAZINE HCL 50 MG TABLET PO SCH ×3 (09:00→17:00)
[2018-08-11] MEDS: FERROUS SULFATE (325 MG) 325 MG/TAB TABLET PO SCH ×2 (09:23→16:04)
[2018-08-11] MEDS: CLOPIDOGREL BISULFATE 75 MG TABLET PO SCH (09:29)
[2018-08-11] MEDS: PREGABALIN 25 MG CAPSULE PO SCH ×2 (09:29→16:04)
[2018-08-11] MEDS: ATORVASTATIN 10 MG TABLET PO SCH (09:30)
[2018-08-11] MEDS: CARVEDILOL 12.5 MG TABLET PO SCH ×2 (09:30→21:00)
[2018-08-11] MEDS: GABAPENTIN 100 MG CAPSULE PO SCH ×2 (09:31→16:04)
[2018-08-11] MEDS: NITROGLYCERIN 30 GM TUBE TP SCH ×2 (09:39→21:00)
[2018-08-11 11:23] LABS: BASOPHILS # (AUTO) 0.1 /CMM (0.0-0.2); BASOPHILS % (AUTO) 0.9 % (0.0-2.0); EOSINOPHILS % (AUTO) 1.1 % (0.0-6.0); HEMATOCRIT 33 % (33-45); HEMOGLOBIN 10.7 g/dL (11.5-14.8); LYMPHOCYTES # (AUTO) 1.7 /CMM (0.8-4.8); LYMPHOCYTES % (AUTO) 22.9 % (20.0-44.0); MEAN CORPUSCULAR HGB CONC 33 g/dl (31.0-36.0); MEAN CORPUSCULAR VOLUME 87 fL (82-100); MONOCYTES # (AUTO) 0.8 /CMM (0.1-1.30); MONOCYTES % (AUTO) 11.6 % (2.0-12.0); NEUTROPHILS # (AUTO) 4.6 /CMM (1.8-8.9); NEUTROPHILS % (AUTO) 63.5 % (43.0-81.0); PLATELET COUNT (AUTO) 197 /CMM (150-450); RED BLOOD CELL COUNT(AUTO) 3.75 MIL/uL (4.0-5.2); WHITE BLOOD COUNT (AUTO) 7.3 K/uL (4.3-11.0)
[2018-08-11] MEDS: risperiDONE 0.25 MG TABLET PO SCH ×2 (11:30→17:00)
[2018-08-11] MEDS ORDERED: POTASSIUM CHLORIDE 20 MEQ TAB.PRT.SR PO ONE (13:30)
[2018-08-11] MEDS ORDERED: ACETAMINOPHEN 650 MG/20.3 ML UDC NG PRN (15:30)
[2018-08-11 20:00] VITALS: BP 127/84
[2018-08-11] MEDS: ENOXAPARIN SODIUM 100 MG/ML DISP.SYRIN SQ SCH (21:00)
[2018-08-12] VITALS: BP 129/79
[2018-08-12 08:00] VITALS: BP 147/78
[2018-08-12] MEDS ORDERED: FAMOTIDINE/PF INJ 20 MG/2 ML VIAL IV ONE (08:00)
[2018-08-12] MEDS ORDERED: methylPREDNISolone SOD SUCC 125 MG/2ML VIAL IV ONE (08:13)
[2018-08-12] MEDS: FERROUS SULFATE (325 MG) 325 MG/TAB TABLET PO SCH ×2 (08:58→17:33)
[2018-08-12] MEDS: GABAPENTIN 100 MG CAPSULE PO SCH ×2 (08:59→17:33)
[2018-08-12] MEDS: CARVEDILOL 12.5 MG TABLET PO SCH ×2 (08:59→20:25)
[2018-08-12] MEDS: ATORVASTATIN 10 MG TABLET PO SCH (08:59)
[2018-08-12] MEDS: NITROGLYCERIN 30 GM TUBE TP SCH ×2 (09:00→20:25)
[2018-08-12] MEDS: risperiDONE 0.25 MG TABLET PO SCH ×2 (09:00→17:33)
[2018-08-12] MEDS: PREGABALIN 25 MG CAPSULE PO SCH ×2 (09:00→17:33)
[2018-08-12] MEDS: ENOXAPARIN SODIUM 100 MG/ML DISP.SYRIN SQ SCH (09:00)
[2018-08-12] MEDS: hydrALAZINE HCL 50 MG TABLET PO SCH ×3 (09:00→17:00)
[2018-08-12] MEDS: CLOPIDOGREL BISULFATE 75 MG TABLET PO SCH (09:00)
[2018-08-12] MEDS ORDERED: diphenhydrAMINE HCL 50 MG/ML VIAL IV ONE (15:30)
[2018-08-12 16:00] VITALS: BP 93/49
[2018-08-12] MEDS ORDERED: ENOXAPARIN SODIUM 100 MG/ML DISP.SYRIN SQ SCH (17:30)
[2018-08-13 07:14] LABS: BASOPHILS # (AUTO) 0.1 /CMM (0.0-0.2); BASOPHILS % (AUTO) 0.8 % (0.0-2.0); EOSINOPHILS % (AUTO) 2.1 % (0.0-6.0); HEMATOCRIT 34 % (33-45); HEMOGLOBIN 11.1 g/dL (11.5-14.8); LYMPHOCYTES # (AUTO) 2.2 /CMM (0.8-4.8); LYMPHOCYTES % (AUTO) 25.1 % (20.0-44.0); MEAN CORPUSCULAR HGB CONC 33 g/dl (31.0-36.0); MEAN CORPUSCULAR VOLUME 89 fL (82-100); MONOCYTES # (AUTO) 0.8 /CMM (0.1-1.30); MONOCYTES % (AUTO) 9.8 % (2.0-12.0); NEUTROPHILS # (AUTO) 5.4 /CMM (1.8-8.9); NEUTROPHILS % (AUTO) 62.2 % (43.0-81.0); PLATELET COUNT (AUTO) 217 /CMM (150-450); RED BLOOD CELL COUNT(AUTO) 3.76 MIL/uL (4.0-5.2); WHITE BLOOD COUNT (AUTO) 8.7 K/uL (4.3-11.0)
[2018-08-13 08:00] VITALS: BP 119/64
[2018-08-13] MEDS: NITROGLYCERIN 30 GM TUBE TP SCH ×2 (09:00→21:00)
[2018-08-13] MEDS: PREGABALIN 25 MG CAPSULE PO SCH ×2 (09:23→17:33)
[2018-08-13] MEDS: risperiDONE 0.25 MG TABLET PO SCH ×2 (09:24→17:33)
[2018-08-13] MEDS: CARVEDILOL 12.5 MG TABLET PO SCH ×2 (09:25→21:00)
[2018-08-13] MEDS: hydrALAZINE HCL 50 MG TABLET PO SCH ×3 (09:25→17:33)
[2018-08-13] MEDS: CLOPIDOGREL BISULFATE 75 MG TABLET PO SCH (10:00)
[2018-08-13] MEDS: ATORVASTATIN 10 MG TABLET PO SCH (10:00)
[2018-08-13] MEDS: GABAPENTIN 100 MG CAPSULE PO SCH ×2 (10:00→17:00)
[2018-08-13] MEDS: FERROUS SULFATE (325 MG) 325 MG/TAB TABLET PO SCH ×2 (10:00→17:38)
[2018-08-13] MEDS: APIXABAN 2.5 MG TABLET PO SCH ×2 (10:03→17:37)
[2018-08-13 12:00] VITALS: BP 108/85
[2018-08-13 12:12] LABS: THYROID STIMULATING HORMONE 0.946 uIU/mL (0.358-3.74)
[2018-08-13 16:00] VITALS: BP 111/62
[2018-08-13 19:11] LABS: CALCIUM, SERUM 8.7 mg/dL (8.5-10.1); CARBON DIOXIDE 22 mmol/L (21-32); CHLORIDE 107 mmol/L (98-107); CREATININE 0.8 mg/dL (0.6-1.3); GLUCOSE 143 mg/dL (74-106); POTASSIUM 3.7 mmol/L (3.5-5.1); SODIUM SERUM 140 mmol/L (136-145); UREA NITROGEN, BLOOD 20 mg/dL (7-18)
[2018-08-14 08:00] VITALS: BP 153/64
[2018-08-14] MEDS: CARVEDILOL 12.5 MG TABLET PO SCH (09:00)
[2018-08-14] MEDS: hydrALAZINE HCL 50 MG TABLET PO SCH ×2 (09:00→13:44)
[2018-08-14] MEDS: FERROUS SULFATE (325 MG) 325 MG/TAB TABLET PO SCH (09:41)
[2018-08-14] MEDS: CLOPIDOGREL BISULFATE 75 MG TABLET PO SCH (09:41)
[2018-08-14] MEDS: GABAPENTIN 100 MG CAPSULE PO SCH (09:41)
[2018-08-14] MEDS: risperiDONE 0.25 MG TABLET PO SCH (09:42)
[2018-08-14] MEDS: ATORVASTATIN 10 MG TABLET PO SCH (09:42)
[2018-08-14] MEDS: PREGABALIN 25 MG CAPSULE PO SCH (09:42)
[2018-08-14] MEDS: NITROGLYCERIN 30 GM TUBE TP SCH (09:43)
[2018-08-14] MEDS: APIXABAN 2.5 MG TABLET PO SCH (09:53)
[2018-08-14] MEDS ORDERED: CLOP75TA15 PO (11:05)
[2018-08-14] MEDS ORDERED: CARV12.52 PO (11:05)
[2018-08-14] MEDS ORDERED: RISP0.253 PO (11:05)
[2018-08-14] MEDS ORDERED: HYDR-4077 PO (11:05)
[2018-08-14] MEDS ORDERED: ATOR10TA PO (11:05)
[2018-08-14] MEDS ORDERED: APIX2.5T PO (11:05)
[2018-08-14 13:44] VITALS: BP 119/60
== END 2018-08-14 15:26 | disposition home or self-care (01) | DRG 190 ==
LOC: ER 02:13 → TELE1 04:20 → MEDSG1 08-10 09:05
PROVIDERS: ADMIT Nurse Practitioner Acute Care; ATTEND Internal Medicine
DX: I21.4 Non-ST elevation (NSTEMI) myocardial infarction (principal); E44.0 Moderate protein-calorie malnutrition; D68.69 Other thrombophilia; G62.9 Polyneuropathy, unspecified; E66.01 Morbid (severe) obesity due to excess calories; Z79.01 Long term (current) use of anticoagulants; Z86.718 Personal history of other venous thrombosis and embolism; M79.7 Fibromyalgia; Z86.711 Personal history of pulmonary embolism; E87.6 Hypokalemia; Z88.6 Allergy status to analgesic agent; Z91.041 Radiographic dye allergy status; Z90.49 Acquired absence of other specified parts of digestive tract; Z88.1 Allergy status to other antibiotic agents; Z88.5 Allergy status to narcotic agent; Z88.0 Allergy status to penicillin; Z88.2 Allergy status to sulfonamides; Z88.8 Allergy status to other drugs, medicaments and biological substances; Z79.899 Other long term (current) drug therapy; Z68.35 Body mass index [BMI] 35.0-35.9, adult; F41.1 Generalized anxiety disorder; F32.9 Major depressive disorder, single episode, unspecified; C53.9 Malignant neoplasm of cervix uteri, unspecified; G89.4 Chronic pain syndrome; I25.2 Old myocardial infarction; I10 Essential (primary) hypertension; D64.9 Anemia, unspecified
CPT/HCPCS: 36415; 71045-TC; 78582; 80048-TC; 80061-TC; 80076-TC; 82728-TC; 83540-TC; 83735-TC; 83880; 84100-TC; 84443-TC; 84484-TC; 85025-TC; 85378-TC; 85730-TC; 87081-TC; 93307-TC; 93970-TC; A9540; A9567; G0378; J1650; J2930; J3490

== ENCOUNTER 2018-08-28 23:40 | Emergency (ER) | payer MEDICARE, MEDICAID ==
[~2018-08-28] VITALS: Ht 162.6 cm; Wt 95.3 kg
[~2018-08-28 23:40] MED LIST changes: +ACET-868 PO; +APIX2.5T PO; +ATOR10TA PO; +CARV12.52 PO; -CARV6.252 PO; -CHLO25TA2 PO; +CLOP75TA15 PO; +FAMO40TA7 PO; +FERR325T23 PO; -FURO20TA4 PO; +HYDR-4077 PO; +HYDR-4384 PO; +HYDR25TA4 PO; +ONDA4TAB5 PO; +RISP0.253 PO; -RIVA10TA PO; +ZOLP5TAB2 PO
--- NOTE | 2018-08-29 | NUR ---
PT BIB PA. COMP OF HAVING "R LEG PAIN, UNABLE TO BARE WEIGHT ON LOWER EXTREMITY. PAIN STARTED 4 HRS AGO". NO SOB NOTED. NO ACUTE DISTRESS AT THIS TIME. PT AOX4. AMBULATORY W.ASSISTANCE. AWAITING EVAL.
[2018-08-29] MEDS ORDERED: HYDROCODONE/APAP 5/325MG 1 EACH TABLET ONE (01:23)
[2018-08-29] MEDS ORDERED: HYDROCODONE/APAP 5/325MG 1 EACH TABLET PO ONE (01:30)
[2018-08-29 02:44] VITALS: BP 138/68
== END 2018-08-29 02:45 ==
LOC: ER 23:44
DX: M25.561 Pain in right knee (principal); G89.29 Other chronic pain; G62.9 Polyneuropathy, unspecified; Z88.6 Allergy status to analgesic agent; Z88.0 Allergy status to penicillin; Z88.2 Allergy status to sulfonamides; Z88.1 Allergy status to other antibiotic agents; Z88.5 Allergy status to narcotic agent; Z86.718 Personal history of other venous thrombosis and embolism; Z79.899 Other long term (current) drug therapy
CPT/HCPCS: 73564; 93971; 99284; A4606; Z7610

== ENCOUNTER 2018-09-19 11:44 | Emergency (ER) | payer MEDICARE, MEDICAID ==
[~2018-09-19] VITALS: Ht 167.6 cm; Wt 90.7 kg
--- NOTE | 2018-09-19 12:07 | NUR ---
PT BIBRA TO ER BED 06. PER REPORT, PT IS VERBALLY AGRESSIVE TO STAFF, "SWINGING HER CANE." AND REFUSING MEDICATIONS. PD IS PLANNING TO WRITE A HOLD FOR THE PT FOR DTS AND GD. PLACED ON MONITOR. STABLE VITALS. AWAITING MD MIJARES.
--- NOTE | 2018-09-19 12:08 | NUR ---
EVERETT COWART AT BEDSIDE FOR EVAL.
--- NOTE | 2018-09-19 12:24 | NUR ---
COMPETITIVE SHOPPER AT BEDSIDE FOR BLOOD DRAW.
[2018-09-19 12:27] LABS: BASOPHILS % (AUTO) 0.8 % (0.0-2.0); EOSINOPHILS % (AUTO) 1.7 % (0.0-6.0); HEMATOCRIT 35 % (33-45); HEMOGLOBIN 11.6 g/dL (11.5-14.8); LYMPHOCYTES # (AUTO) 1.3 /CMM (0.8-4.8); LYMPHOCYTES % (AUTO) 24.3 % (20.0-44.0); MEAN CORPUSCULAR HGB CONC 33 g/dl (31.0-36.0); MEAN CORPUSCULAR VOLUME 88 fL (82-100); MONOCYTES # (AUTO) 0.5 /CMM (0.1-1.30); MONOCYTES % (AUTO) 9.4 % (2.0-12.0); NEUTROPHILS # (AUTO) 3.4 /CMM (1.8-8.9); NEUTROPHILS % (AUTO) 63.8 % (43.0-81.0); PLATELET COUNT (AUTO) 188 /CMM (150-450); RED BLOOD CELL COUNT(AUTO) 4.03 MIL/uL (4.0-5.2); WHITE BLOOD COUNT (AUTO) 5.3 K/uL (4.3-11.0)
[2018-09-19] MEDS ORDERED: CLOP75TA15 PO (12:29)
[2018-09-19] MEDS ORDERED: QUET25TA PO (12:29)
[2018-09-19] MEDS ORDERED: APIX5TAB PO (12:29)
[2018-09-19] MEDS ORDERED: RISP0.253 PO (12:29)
[2018-09-19] MEDS ORDERED: CARV25TA2 PO (12:29)
[2018-09-19] MEDS ORDERED: ATOR10TA PO (12:29)
[2018-09-19] MEDS ORDERED: HYDR-4077 PO (12:29)
[2018-09-19 12:34] LABS: CALCIUM, SERUM 9.2 mg/dL (8.5-10.1); CARBON DIOXIDE 26 mmol/L (21-32); CHLORIDE 106 mmol/L (98-107); CREATININE 0.8 mg/dL (0.6-1.3); GLUCOSE 108 mg/dL (74-106); POTASSIUM 3.4 mmol/L (3.5-5.1); SODIUM SERUM 141 mmol/L (136-145); UREA NITROGEN, BLOOD 15 mg/dL (7-18)
[2018-09-19 12:40] LABS: ACETAMINOPHEN 0 ug/ml (10-30); ALANINE AMINOTRANSFERASE 18 U/L (12-78); ALBUMIN 3.1 g/dL (3.4-5.0); ALCOHOL, BLOOD < 3 mg/dL (0-0); ALKALINE PHOSPHATASE 84 U/L (46-116); ASPARTATE AMINOTRANSFERASE 12 U/L (15-37); BILIRUBIN,DIRECT 0.1 mg/dL (0.0-0.2); BILIRUBIN,TOTAL 0.4 mg/dL (0.2-1.0); SALICYLATE 0.8 mg/dL (2.8-20.0); TOTAL PROTEIN, SERUM 7.5 g/dL (6.4-8.2)
[2018-09-19 12:55] LABS: APPEARANCE,URINE Clear (CLEAR); BILIRUBIN,URINE SMALL (NEGATIVE); BLOOD, URINE Negative Ery/uL (NEGATIVE); COLOR,URINE Yellow (YELLOW); KETONES,URINE Trace (NEGATIVE); LEUKOCYTE ESTERASE ,URINE Small (NEGATIVE); NITRITE, URINE Negative (NEGATIVE); PH,URINE 5.5 (5.0-8.0); PROTEIN,URINE 30 mg/dl (NEGATIVE); UGLUCOSE Negative (NEGATIVE); UROBILINOGEN,URINE 0.2 EU/dL (0.2)
[2018-09-19 13:01] LABS: BACTERIA,URINE Few /HPF (None Seen); SQUAMOUS EPITHELIAL CELL,UR Few /HPF (None Seen)
--- NOTE | 2018-09-19 13:20 | NUR ---
PAGED EMELY (CRISIS) FOR EVAL
--- NOTE | 2018-09-19 14:36 | NUR ---
EMELY ARCOS AT BEDSIDE FOR PSYCH EVAL.
--- NOTE | 2018-09-19 15:31 | NUR ---
CALLED [facility] FOR TRANSPORT ETA OF 1630 WAS GIVEN. TRIP#[id number]
[2018-09-19 17:20] VITALS: BP 142/76
--- NOTE | 2018-09-19 17:20 | NUR ---
PT SLEEPING IN BED. ON MONITOR W/ STABLE VITALS. WILL CONTINUE TO MONITOR.
--- NOTE | 2018-09-19 17:25 | NUR ---
SET UP TRANSPORT WITH [facility] BACK TO FACILITY - ETA 2000
== END 2018-09-19 19:59 | disposition home or self-care (01) ==
LOC: ER 11:44
DX: R45.1 Restlessness and agitation (principal); F25.9 Schizoaffective disorder, unspecified; G62.9 Polyneuropathy, unspecified; Z86.718 Personal history of other venous thrombosis and embolism; Z88.6 Allergy status to analgesic agent; Z88.0 Allergy status to penicillin; Z88.2 Allergy status to sulfonamides; Z88.1 Allergy status to other antibiotic agents; Z88.5 Allergy status to narcotic agent
CPT/HCPCS: 36415; 80048; 80076; 80305; 80307; 81001; 85025; 87086; 99285; A4606; G0480; 81000-TC

== ENCOUNTER 2018-09-19 21:17 | Emergency (ER) | payer MEDICARE, MEDICAID ==
[~2018-09-19] VITALS: Ht 167.6 cm; Wt 90.7 kg
[~2018-09-19 21:17] MED LIST changes: +APIX5TAB PO; +CARV25TA2 PO; +QUET25TA PO
--- NOTE | 2018-09-19 21:30 | NUR ---
PT ANDRES PT WAS DISCHARGED FROM [facility] ED, PT'S FACILITY AND [facility], REFUSED TO TAKE PT BACK. EMS BROUGHT PT BACK TO ED. NO COMPLAINTS AT TIME OF ARRIVAL. PT AOX4. PT IN BED 6. WILL CONTINUE TO MONITOR.
--- NOTE | 2018-09-20 01:21 | NUR ---
Patient is resting comfortably in bed with eyes closed. Easily aroused.
--- NOTE | 2018-09-20 05:22 | NUR ---
Patient is resting comfortably in bed with eyes closed. Easily aroused. VSS.
--- NOTE | 2018-09-20 07:35 | NUR ---
REPORT GIVEN TO FLORY BLANCO FOR TONYA
--- NOTE | 2018-09-20 08:00 | NUR ---
PT RESTING IN BED. BREAKFAST TRAY GIVEN. STABLE VITALS. WILL CONTINUE TO MONITOR.
--- NOTE | 2018-09-20 10:05 | NUR ---
PT AMBULATES W/ A CANE TO BATHROOM. STEADY GAIT. VITALS UPDATED AND STABLE. WILL CONTINUE TO MONITOR.
--- NOTE | 2018-09-20 11:34 | NUR ---
WINSTON contacted [facility] at and filed a complaint with track moving machine operator [facility] refusing the take pt. back at the facility. The facility did not provide pt. with a 30 day notice either.
--- NOTE | 2018-09-20 12:40 | NUR ---
PT RESTING IN BED. PROVIDED W/ LUNCH TRAY. STABLE VITALS.
--- NOTE | 2018-09-20 16:31 | NUR ---
CALLED [facility] FOR [facility] TRANSPORT TRIP #[id number] ETA 60-15
--- NOTE | 2018-09-20 16:50 | NUR ---
REPORT GIVEN TO CHARGE NURSE RAQUEL. PT AWAITING TRANSPORT.
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
--- NOTE | 2018-09-20 20:10 | NUR ---
[facility] AT BEDSIDE FOR TRANSPORT TO [facility].
[2018-09-21 01:29] VITALS: BP 141/78
== END 2018-09-21 01:29 | disposition home or self-care (01) ==
LOC: ER 21:19
DX: R45.1 Restlessness and agitation (principal); G62.9 Polyneuropathy, unspecified; Z86.718 Personal history of other venous thrombosis and embolism; Z88.6 Allergy status to analgesic agent; Z88.2 Allergy status to sulfonamides; Z88.0 Allergy status to penicillin; Z88.1 Allergy status to other antibiotic agents; Z88.5 Allergy status to narcotic agent; Z88.9 Allergy status to unspecified drugs, medicaments and biological substances
CPT/HCPCS: 99283; A4606

== ENCOUNTER 2018-11-10 19:32 | Emergency (ER) | payer MEDICARE, MEDICAID ==
[~2018-11-10] VITALS: Ht 167.6 cm; Wt 130.6 kg
[~2018-11-10 19:32] MED LIST changes: -APIX2.5T PO; -CARV12.52 PO
[2018-11-10] MEDS ORDERED: HYDROMORPHONE 1 MG/1 ML DISP.SYRIN IM ONE (20:00)
[2018-11-10] MEDS ORDERED: HYDROMORPHONE 1 MG/1 ML DISP.SYRIN ONE (20:09)
--- NOTE | 2018-11-10 20:15 | NUR ---
DILAUDID 0.5MG ADMINISTERED IM TO LEFT DELTOID, TOLERATED WELL
--- NOTE | 2018-11-10 21:10 | NUR ---
CALLED PATIENT'S SON KENNY [phone] PER PATIENT REQUEST TO UPDATE REGARDING CURRENT CONDITION.
--- NOTE | 2018-11-11 | NUR ---
PATIENT ASLEEP IN BED, NO ACUTE DISTRESS NOTED, VSS
--- NOTE | 2018-11-11 02:00 | NUR ---
PATIENT REMAINS IN BED, ASLEEP, VSS, NO ACUTE DISTRESS NOTED, WILL COTNINUE TO CLOSELY MONITOR
--- NOTE | 2018-11-11 04:00 | NUR ---
ASSISTED PATIENT TO RESTROOM. PATIENT ABLE TO UTLIZE CANE AND MINIMAL ASSISTANCE FROM STAFF
[2018-11-11 06:00] VITALS: BP 141/89
--- NOTE | 2018-11-11 06:30 | NUR ---
PATIENT REQUESTING TO HAVE LEGS WRAPPED. MADE AWARE, WITH ORDER TO USE ACEWRAP. PATIENT ALSO WITH REQUEST TO SPEAK TO WILD LIFE MANAGER TO OBTAIN MOTORIZED WHEELCHAIR.
--- NOTE | 2018-11-11 09:42 | NUR ---
Kristal, administrator social welfare at bedside for eval
--- NOTE | 2018-11-11 10:00 | NUR ---
WINSTON received a call from ALBERTO Barrios requesting for placement for the pt. WINSTON met with pt. bedside. Pt. is alert and oriented x 4. Pt. was calm during initial visit. Pt. denies being homeless and states she has money and is looking for an apartment. WINSTON informed pt. an apartment takes time and case management social worker is working on getting her placement. Pt. refused placement. WINSTON informed pt. she will call her son to inform him about declining placement. Pt. agreed. WINSTON contacted pt's son Dom and informed him that pt. is refusing placement and is wanting to leave the hospital. Everardo informed WINSTON he will call ED and speak with her. WINSTON received a call back from Everardo who informed SW that pt. is being verbally abusive to staff and to him and if she wants to leave, she can leave. WINSTON met with pt. again in the ED. Pt. was by the nursing station yelling at staff. Pt. began yelling at as well. WINSTON asked pt. if she wants a taxi to go somewhere. Pt. states she wants to go to the mall to get a new phone. Pt. was given a taxi to go to [facility] located at [address] [place] [address]. Pt. refused to take any homeless resources or sign the Homeless patient Waiver form.
--- NOTE | 2018-11-11 12:14 | NUR ---
PT REQUESTED TO LEAVE. STATED SHE WILL GO TO THE MALL TO BUY A PHONE. INFORMED HER THAT WINSTON SON WILL COME SPEAK TO HER. PT BECAME AGITATED AND GATHERED HER THINGS, PROCEEDED TO LEAVE ED. SHE WAS VERBALLY ABUSIVE TOWARD STAFF MEMBERS. ADELAIDA CAME AND TOLD HER WE WILL GET HER A TAXI. SHE WAS GIVEN DISCHARGE INSTRUCTIONS AND PAPERS, WRISTBAND REMOVED. SENT TO WAITING ROOM.
--- NOTE | 2018-11-11 12:15 | NUR ---
PT REFUSED TO SIGN HOMELESS WAIVER AND DISCHARGE PAPERS.
== END 2018-11-11 12:36 | disposition home or self-care (01) ==
LOC: ER 19:40
DX: E11.40 Type 2 diabetes mellitus with diabetic neuropathy, unspecified (principal); R60.0 Localized edema; M25.561 Pain in right knee; M25.562 Pain in left knee; Z88.6 Allergy status to analgesic agent; Z88.0 Allergy status to penicillin; Z88.2 Allergy status to sulfonamides; Z88.1 Allergy status to other antibiotic agents; Z88.5 Allergy status to narcotic agent; Z88.8 Allergy status to other drugs, medicaments and biological substances; Z60.2 Problems related to living alone; Z79.899 Other long term (current) drug therapy; Z86.718 Personal history of other venous thrombosis and embolism
CPT/HCPCS: 96372; 99283; A6402; J1170

== ENCOUNTER 2018-11-11 20:44 | Emergency (ER) | payer MEDICARE, MEDICAID ==
[~2018-11-11] VITALS: Ht 167.6 cm; Wt 81.2 kg
--- NOTE | 2018-11-11 21:54 | NUR ---
CALLED OFFICE OF DR MACHADO [phone], M. ON VACATION, DR GLASER WAS PAGED FOR CONSULT
--- NOTE | 2018-11-11 23:20 | NUR ---
US IS IN PROGRESS AT THE BEDSIDE IN ER18.
[2018-11-12 01:39] VITALS: BP 138/84
--- NOTE | 2018-11-12 01:40 | NUR ---
Patient discharged to home in stable condition. Written and verbal after care instructions given. Patient verbalizes understanding of instruction. PT AMBULATED TO THE LOBBY TO WAIT FOR THE BUSES TO RUN IN THE MORNING. PT'S VSS.
--- NOTE | 2018-11-12 01:40 | NUR ---
PT REFUSED ALL HOMELESS RESOURCES. PT DENIES BEING HOMELESS.
--- NOTE | 2018-11-12 10:50 | NUR ---
WINSTON was informed by security rover Ivan that pt. was discharged from ED late last night and has been waiting in the lobby. WINSTON met with pt. WINSTON is familiar with pt. from yesterday where pt. left the ED verbally abusing staff and refusing resources or transportation. Pt. is alert and oriented. Pt. appears paranoid. WINSTON inquired with pt. again if she is homeless, pt. got upset and stated, " I am not homeless, lady." WINSTON asked pt. if she would like a taxi to an address and pt. declined. Pt. states she is supposed to have her radiation chemotherapy yesterday at [facility] in [place]. WINSTON contacted [facility] in [place] and spoke with Suly, patient care payable representative who informed SW that pt. had no appointment scheduled as of yet. Suly informed WINSTON that an infusion nurse Isabella or Bianca will contact pt's son Everardo to schedule an appointment. WINSTON spoke with pt's son Everardo and updated him with the aforementioned information regarding [facility]. WINSTON also contact Erma's placement for recuperative care for the pt. Per Erma she does have a room available for $800/month for the pt. located at [address] [place] [address]. WINSTON spoke with the pt. who agreed to go to recuperative care. WINSTON also called pt's son Everardo and informed him of pt's discharge plan and gave him the location address for the pt. and Erma's contact number. Pt. will be transported via taxi to [address] [place] [address].
== END 2018-11-12 01:39 | disposition home or self-care (01) ==
LOC: ER 20:48
DX: M79.604 Pain in right leg (principal); R60.0 Localized edema; G62.9 Polyneuropathy, unspecified; Z86.718 Personal history of other venous thrombosis and embolism; Z88.6 Allergy status to analgesic agent; Z88.0 Allergy status to penicillin; Z88.2 Allergy status to sulfonamides; Z88.1 Allergy status to other antibiotic agents; Z88.5 Allergy status to narcotic agent; Z60.2 Problems related to living alone; Z88.9 Allergy status to unspecified drugs, medicaments and biological substances
CPT/HCPCS: 93971-TC

== ENCOUNTER 2019-03-20 23:36 | Emergency (ER) | payer MEDICARE, MEDICAID ==
[~2019-03-20] VITALS: Ht 167.6 cm; Wt 81.6 kg
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
--- NOTE | 2019-03-21 | NUR ---
XRAY AT BEDSIDE.
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
--- NOTE | 2019-03-21 00:35 | NUR ---
[employer] AT BEDSIDE.
[2019-03-21] MEDS ORDERED: TRAMADOL HCL 50 MG TABLET ONE (01:13)
[2019-03-21] MEDS ORDERED: TRAMADOL HCL 50 MG TABLET PO ONE (01:30)
--- NOTE | 2019-03-21 01:30 | NUR ---
Patient discharged to home in stable condition. Written and verbal after care instructions given. Patient verbalizes understanding of instruction.
[2019-03-21 01:31] VITALS: BP 155/88
== END 2019-03-21 01:34 | disposition home or self-care (01) ==
LOC: ER 23:39
DX: S60.222A Contusion of left hand, initial encounter (principal); S60.221A Contusion of right hand, initial encounter; E78.5 Hyperlipidemia, unspecified; I10 Essential (primary) hypertension; I25.10 Atherosclerotic heart disease of native coronary artery without angina pectoris; D68.59 Other primary thrombophilia; G62.89 Other specified polyneuropathies; Z85.41 Personal history of malignant neoplasm of cervix uteri; Z86.711 Personal history of pulmonary embolism; Z90.49 Acquired absence of other specified parts of digestive tract; Z86.718 Personal history of other venous thrombosis and embolism; Z88.6 Allergy status to analgesic agent; Z88.0 Allergy status to penicillin; Z88.1 Allergy status to other antibiotic agents; Z88.2 Allergy status to sulfonamides; Z88.5 Allergy status to narcotic agent; Z60.2 Problems related to living alone; Z88.9 Allergy status to unspecified drugs, medicaments and biological substances; Y08.89XA Assault by other specified means, initial encounter; Y93.89 Activity, other specified; Y92.89 Other specified places as the place of occurrence of the external cause; Y99.8 Other external cause status
CPT/HCPCS: 73130-TC

== ENCOUNTER 2019-07-25 00:41 | Emergency (ER) | payer MEDICARE, OTHER ==
[~2019-07-25] VITALS: Ht 167.6 cm; Wt 77.1 kg
--- NOTE | 2019-07-25 00:50 | NUR ---
PT BIB RA WITH A C/O RT SIDED NECK PAIN. PT DENIES BEING HOMELESS, BUT STATED THAT SHE IS HERE FROM [place] AND IS LIVING IN A MOTEL 6 AT THE MOMENT. PT STATED THAT SHE WOULD LIKE ASSISTANCE TO GET INTO A PLACE TO LIVE. PT WAS PLACED ON THE MONITOR AND CONTINUOUS PULSE OX.
--- NOTE | 2019-07-25 00:58 | NUR ---
PT LEFT FOR CT VIA GURNEY.
[2019-07-25] MEDS ORDERED: IBUPROFEN 400 MG TABLET PO ONE (01:00)
[2019-07-25] MEDS ORDERED: IBUPROFEN 400 MG TABLET ONE (01:12)
--- NOTE | 2019-07-25 01:15 | NUR ---
PT RETURNED FROM CT.
--- NOTE | 2019-07-25 02:44 | NUR ---
PT REC'D A HOMELESS ALF RESOURCE LIST, TAP CARD, GRIPPER SOCKS, FOOD AND JUICE. Patient discharged to home in stable condition. Written and verbal after care instructions given. Patient verbalizes understanding of instruction AND RX. PT AMBULATED OUT TO THE LOBBY TO WAIT FOR THE BUSES TO START RUNNING.
[2019-07-25 02:46] VITALS: BP 138/77
--- NOTE | 2019-07-25 02:47 | NUR ---
Patient discharged to home in stable condition. Written and verbal after care instructions given. Patient verbalizes understanding of instruction AND RX. PT AMBULATED TO THE LOBBY WITH HER CANE AND A SLOW STEADY GAIT.
== END 2019-07-25 02:47 | disposition home or self-care (01) ==
LOC: ER 00:42
DX: M54.12 Radiculopathy, cervical region (principal); M19.90 Unspecified osteoarthritis, unspecified site; G62.9 Polyneuropathy, unspecified; Z86.718 Personal history of other venous thrombosis and embolism; Z85.41 Personal history of malignant neoplasm of cervix uteri; Z88.6 Allergy status to analgesic agent; Z88.0 Allergy status to penicillin; Z88.2 Allergy status to sulfonamides; Z88.1 Allergy status to other antibiotic agents; Z88.5 Allergy status to narcotic agent; Z60.2 Problems related to living alone; Z79.899 Other long term (current) drug therapy
CPT/HCPCS: 72125-TC